=== PATIENT | male | born 1965 | race Caucasian/White ===

== ENCOUNTER 2017-04-24 05:32 | Inpatient (IN) ==
[2017-04-17 11:58] LABS: PT Patient Result 10.6 SECS
[2017-04-17 12:09] LABS: Albumin 4.2 G/DL (3.4-5.0); Bilirubin,Total 0.5 MG/DL (0.2-1.0); Calcium 9.2 MG/DL (8.5-10.1); Osmolality,Calculated 269.4 MOS/KG (273-304); Potassium 2.7 MMOL/L (3.5-5.1); Total Protein 7.2 G/DL (6.4-8.3)
[2017-04-17 12:14] LABS: Basophils % 0.3 % (0.0-0.8); Eosinophils % 0.2 % (0.00-10.9); Hematocrit 41.5 VOL% (42.0-52.0); Immature Granulocytes % 0.5 %; Immature Granulocytes Absolute 0.06 #; Lymphocytes # 1.7 10*3/uL (1.4-4.0); Lymphocytes % 13.9 % (21.2-54.2); Mean Corpuscular HGB Conc 37.8 GM/DL (32-36); Mean Corpuscular Hemoglobin 31 PG (27-34); Mean Corpuscular Volume 81.4 FL (87-102); Monocytes # 0.8 10*3/uL (0.11-0.8); Monocytes % 6.3 % (1.7-12.7); Neutrophils # 9.3 10*3/uL (1.4-7.4); Neutrophils % 78.8 % (38.7-73.9); Platelet Count 270 T/CUMM (130-400); Red Cell Distribution Width 13.1 % (9.3-17.3); White Blood Count 11.8 T/CUMM (4-12)
[2017-04-17 12:16] LABS: Hemoglobin 15.7 GM/DL (14.0-18.0)
[2017-04-17 12:42] LABS: Giant Platelets Few; Platelet Estimate Adequate
[2017-04-24] MEDS ORDERED: ceFAZolin 2,000 MG in PREMIX 1 EACH IV ONE (06:00)
--- NOTE | 2017-04-24 07:02 | History and Physical Update ---
History and Physical Update - History and Physical H&P was reviewed, the patient examined and there: are no changes in the patients condition since last H&P was completed. - Dictation Physical: refer to scanned H&P - Physical Exam Mental Status: alert and oriented Heart: regular rate and rhythm Lung: clear to auscultation Abdomen: within normal limits Vitals: within normal limits (Risks, benefits and alternatives discussed. Right Nephrectomy discussed- CHRISTIAN with possible Open discussed.)
[2017-04-24] MEDS ORDERED: ALBUTEROL 2.5 MG/3 ML NEB RESP TX ONE (07:58)
[2017-04-24] MEDS ORDERED: SODIUM CHLORIDE 0.9% 1,000 ML IV SCH (08:00)
[2017-04-24] MEDS ORDERED: DIAZEPAM 5 MG TABLET PO ONE (08:02)
[2017-04-24 10:15] LABS: Basophils % 0.2 % (0.0-0.8); Eosinophils % 0.3 % (0.00-10.9); Immature Granulocytes % 0.4 %; Immature Granulocytes Absolute 0.04 #; Lymphocytes # 1.9 10*3/uL (1.4-4.0); Lymphocytes % 20.3 % (21.2-54.2); Mean Corpuscular HGB Conc 37.5 GM/DL (32-36); Mean Corpuscular Hemoglobin 31 PG (27-34); Mean Corpuscular Volume 82.5 FL (87-102); Mean Platelet Volume 8.5 FL (9.6-12.0); Monocytes # 0.7 10*3/uL (0.11-0.8); Monocytes % 7.3 % (1.7-12.7); Neutrophils # 6.5 10*3/uL (1.4-7.4); Neutrophils % 71.5 % (38.7-73.9); Platelet Count 256 T/CUMM (130-400); Red Blood Count 4.85 MC/CUMM (3.8-5.5); Red Cell Distribution Width 13.1 % (9.3-17.3); White Blood Count 9.2 T/CUMM (4-12)
[2017-04-24] MEDS ORDERED: LIDOCAINE 2% 5 ML VIAL ONE (11:30)
[2017-04-24] MEDS ORDERED: GLYCOPYRROLATE 0.4 MG/2 ML VIAL ONE (11:30)
[2017-04-24] MEDS ORDERED: PHENYLEPHRINE 1 MG/10 ML SYRINGE IV ONE (11:30)
[2017-04-24] MEDS ORDERED: NEOSTIGMINE 10 MG/10 ML VIAL ONE (11:30)
[2017-04-24] MEDS ORDERED: PHENYLEPHRINE 50 MG/5 ML VIAL ONE (11:30)
[2017-04-24] MEDS ORDERED: ROCURONIUM 100 MG/10 ML VIAL IV ONE (11:30)
[2017-04-24] MEDS ORDERED: PROPOFOL 200 MG/20 ML VIAL IV ONE (11:30)
[2017-04-24] MEDS ORDERED: POTASSIUM CHLORIDE 20 MEQ/10 ML VIAL ONE (13:15)
[2017-04-24] MEDS ORDERED: POTASSIUM CHLORIDE RIDER 100 ML IV ONE (13:16)
--- NOTE | 2017-04-24 15:53 | Operative Note ---
Date of procedure: 04/24/17 Pre-op diagnosis: Right renal mass Post-op diagnosis: same Procedure: Hand-assisted laparoscopic right radical nephrectomy, adrenal sparing Indication for procedure: This is a 51-year-old male with history of enhancing right renal mass that is almost totally endophytic and right up to the collecting system. Upon imaging it is over 4 cm. He was given options for management, and he is elected for radical nephrectomy. We have discussed a partial nephrectomy or biopsy. He is not willing to take the risk of a possible leak or delayed bleed. He understands there is a risk with biopsy of 10% chance of missed carcinoma. After discussion, he elected to undergo radical nephrectomy. He understands this increases risk long-term of renal disease. He is hypertensive, not been somewhat reluctant about this. Have discussed this with several urologist, and reviewed the imaging with outside urologist. He understands there is a 1520% chance of this being an benign lesion, but he elects for intervention. Procedure detail: After informed consent, the patient brought to the operating room. He was placed supine on operating table. Proper monitoring devices and SCDs are in place and functioning prior to start of the case. He received 2 g of Ancef preoperatively. He was induced with general anesthetic without incident. Lines were started by anesthesia that they were felt were adequate. He did receive potassium as his potassium is chronically low. He was then moved into the left lateral decubitus position with the right side up. He was placed over the break in the bed and had a flex to the bed. His extremities were padded carefully. He had axillary roll placed. He had his arm secured appropriately to remove any tension and possible axillary and brachial plexus. At this point, his abdomen was clipped and then prepped and draped in standard fashion. After operative timeout, initially a paramedian incision at the umbilicus was made. This was carried down to the fascia. His fascia was opened sharply. There is no significant adhesions likely. At this point a GelPort hand port was placed. Pneumoperitoneum was established up to 15 mmHg. And then a camera port was placed under vision through the GelPort. A second port was placed on lateral to the hand port. Finally a third port was placed superiorly. These were all placed under direct visualization care not to injury any bowel or other organs. Laparoscopy was performed demonstrating no significant bowel or bladder bladder injury. No injury to the organs likely. There was some adhesions to the right lower quadrant and these were taken down sharply. This point a left hand was placed and the bowel was reflected. The white line of Toldt was incised and the bowel was reflected medially. The kidney was released laterally. This point the lower pole of the kidney was freed. The ureter and gonadal vein were identified. The ureter ureter was traced up. The medial portion of uritis was incised. The duodenum was released sharply. No evidence of injury was noted to this. The IVC was identified followed up, and the right renal vein was identified. At this point a lower pole artery was identified. This was taken with Endo RYANNE with a vascular load. At this point the second renal artery just superior and posterior to the renal vein was identified. This had been seen on previous CT scan. This was taken with an Endo RYANNE load. Finally the vein was taken separately with the Endo RYANNE. The kidney was then freed from the lateral attachments as well as the inferior attachments. Finally the superior attachments were freed. Was small area of bleeding from the right adrenal vein in this area was clipped. The adrenal gland was spared. Kidney was freed in its entirety. He was placed an Endo Close bag and removed through the GelPort. Pneumoperitoneum was decreased to 5 mmHg. We performed extensive inspection of the renal hilum the resection bed and the adrenal gland. No evidence of significant bleeding or oozing. At this point we placed FloSeal to the adrenal and the hilar area. The Gelfoam was placed over the hilum. Endo Close with 1- 0 Vicryl was used to close the 12 mm ports. This was done under direct visualization with no evidence of injury. Finally pneumoperitoneum was released completely. We had been on 5 mmHg for extended period with no evidence of wheezing. The port was removed and the fascia was closed in a running fashion with 1-0 Vicryl. There is good approximation. The wounds were irrigated copiously and skin was closed with melonie. Patient tolerated procedure well and was awakened general anesthetic. Transferred to recovery room in stable condition. Dr. Yan Niño was scrubbed and assisted with this nephrectomy for the critical portions of the case. Anesthesia: GETA Surgeon / Physician: Adilson Hall Fishing Lure Assembler: Yan Niño Estimated blood loss: other (75 cc) IV fluids: 3,200 (Crystalloid) Urine output: 300 Specimens: other (Right kidney was uritis) Condition: stable Disposition: PACU (Transfer to the floor when stable) Results - Labs CBC & BMP: 04/24/17 09:48 04/24/17 06:21 Lab Results: I have reviewed the past 24 hour labs Discharge Plan - Discharge Medications No Action traZODone [Desyrel] 300 mg PO BEDTIME Topiramate 3 tablet PO BID Lisinopril 20 mg PO DAILY Haloperidol 5 mg PO BID Pantoprazole Tab [Protonix Tab] 1 capsule PO DAILY Clorazepate [Tranxene] 7.5 mg PO TID buPROPion HCl [Bupropion HCl] 100 mg PO BID Tamsulosin [Flomax] 0.4 mg PO DAILY hydrOXYzine HCl [Hydroxyzine HCl] 25 mg PO DAILY Potassium 198 mg PO BID OXcarbazepine [Trileptal] 150 mg PO DAILY amLODIPine [Norvasc] 10 mg PO DAILY - Follow Up or Referral - Forms/Instructions
[2017-04-24] MEDS ORDERED: HYDROmorphone PCA 30 MG/30 ML SYRINGE IV ONE (16:11)
[2017-04-24] MEDS ORDERED: diphenhydrAMINE 50 MG/1 ML VIAL IV PRN (16:11)
[2017-04-24] MEDS ORDERED: NALOXONE 0.4 MG/ML VIAL IV PRN (16:11)
[2017-04-24] MEDS ORDERED: LABETALOL 20 MG/4 ML SYRINGE IV PRN (16:11)
[2017-04-24] MEDS ORDERED: FAMOTIDINE INJ 40 MG in SODIUM CHLORIDE 0.9% 100 ML IV SCH (16:11)
[2017-04-24] MEDS ORDERED: PROMETHAZINE INJ 12.5 MG in SODIUM CHLORIDE 0.9% 50 ML IV ONE (16:20)
[2017-04-24] MEDS ORDERED: PROMETHAZINE 25 MG/1 ML VIAL ONE (16:21)
[2017-04-24] MEDS ORDERED: HYDROmorphone 2 MG/1 ML VIAL ONE (16:21)
[2017-04-24] MEDS: HYDROmorphone 2 MG/1 ML VIAL IV PRN ×4 (16:23→16:38)
[2017-04-24] MEDS ORDERED: fentaNYL 100 MCG/2 ML VIAL ONE (16:26)
[2017-04-24] MEDS ORDERED: SEVOFLURANE 1 UNIT/15 MINUTE INH ONE (16:26)
[2017-04-24] MEDS ORDERED: MIDAZOLAM 2 MG/2 ML VIAL ONE (16:26)
[2017-04-24] MEDS ORDERED: ePHEDrine 50 MG/ML AMP ONE (16:27)
[2017-04-24] MEDS ORDERED: ACETAMINOPHEN 1,000 MG/100 ML VIAL IV ONE (16:27)
[2017-04-24] MEDS ORDERED: SODIUM CHLORIDE 0.9% 1,000 ML IV ONE (16:27)
[2017-04-24] MEDS ORDERED: LACTATED RINGERS 2,000 ML IV ONE (16:27)
[2017-04-24] MEDS ORDERED: SODIUM CHLORIDE 0.9% 250 ML IV ONE (16:27)
[2017-04-24] MEDS ORDERED: MORPHINE 2 MG/1 ML SYRINGE IV ONE (16:34)
[2017-04-24] MEDS ORDERED: MORPHINE 10 MG/1 ML VIAL ONE (16:36)
[2017-04-24] MEDS: HYDROmorphone PCA 30 MG/30 ML SYRINGE IV SCH (16:52)
[2017-04-24 17:10] LABS: Hematocrit 39.9 VOL% (42.0-52.0); Hemoglobin 14.4 GM/DL (14.0-18.0)
[2017-04-24] MEDS: SODIUM CHLORIDE 0.9% 1,000 ML IV SCH (17:53)
[2017-04-24] MEDS: ACETAMINOPHEN 500 MG TABLET PO SCH ×2 (17:54→21:42)
[2017-04-24] MEDS: FAMOTIDINE INJ 40 MG in SODIUM CHLORIDE 0.9% 100 ML IV SCH (19:25)
[2017-04-24] MEDS: CLORAZEPATE 3.75 MG TABLET PO SCH (21:42)
[2017-04-24] MEDS: TOPIRAMATE 25 MG TABLET PO SCH (21:43)
[2017-04-24] MEDS: buPROPion 100 MG TABLET PO SCH (21:43)
[2017-04-24] MEDS: HALOPERIDOL 5 MG TABLET PO SCH (21:43)
--- NOTE | 2017-04-24 22:53 | Anesthesia Post-Op ---
Anesthesia Post OP - Post Ansesthetic Evaluation Patient seen in post op: Yes Resp: within normal limits CV: within normal limits Mental: within normal limits Temp: within normal limits Wqct-By-[id number]: within normal limits Nausea and Vomiting: within normal limits Pain: within normal limits
[2017-04-25] MEDS: ACETAMINOPHEN 500 MG TABLET PO SCH (03:17)
[2017-04-25] MEDS: SODIUM CHLORIDE 0.9% 1,000 ML IV SCH (03:18)
[2017-04-25 05:45] LABS: Basophils # 0.1 10*3/uL (0.0-0.2); Basophils % 0.3 % (0.0-0.8); Eosinophils % 0.1 % (0.00-10.9); Hematocrit 32.5 VOL% (42.0-52.0); Hemoglobin 11.7 GM/DL (14.0-18.0); Immature Granulocytes % 0.5 %; Immature Granulocytes Absolute 0.09 #; Lymphocytes # 1.3 10*3/uL (1.4-4.0); Lymphocytes % 6.3 % (21.2-54.2); Mean Corpuscular Hemoglobin 31 PG (27-34); Mean Corpuscular Volume 84.9 FL (87-102); Mean Platelet Volume 8.8 FL (9.6-12.0); Monocytes # 1.2 10*3/uL (0.11-0.8); Monocytes % 6.1 % (1.7-12.7); Neutrophils # 17.2 10*3/uL (1.4-7.4); Neutrophils % 86.7 % (38.7-73.9); Platelet Count 281 T/CUMM (130-400); Red Blood Count 3.83 MC/CUMM (3.8-5.5); Red Cell Distribution Width 13.3 % (9.3-17.3); White Blood Count 19.9 T/CUMM (4-12)
[2017-04-25 06:10] LABS: Calcium 7.8 MG/DL (8.5-10.1); Hypochromasia Slight; Osmolality,Calculated 269.2 MOS/KG (273-304); Potassium 3.4 MMOL/L (3.5-5.1)
[2017-04-25 06:11] LABS: Microcytosis 1+; Platelet Estimate Normal
--- NOTE | 2017-04-25 07:23 | Urology Progress Note ---
Assessment and Plan - Time spent with patient Time spent with patient: Less than 30 minutes (1) Right renal mass Status: Acute Assessment and plan: Postop day 1 status post right hand-assisted laparoscopic nephrectomy. Incentive spirometer, increase use of this. Out of bed to chair and ambulate in the hallway today. Continue OPERATIONS LEAD for pain control. Continue clear liquid diet as I am concerned he is drinking a lot of fluids may develop an ileus. We will obtain a chest x-ray. Current Visit: Yes (2) Hypertension Status: Acute Assessment and plan: Restart home amlodipine.. Labetalol as needed. Current Visit: Yes (3) Acute blood loss as cause of postoperative anemia Status: Acute Assessment and plan: Recheck a CBC at noon. At less than 100 cc blood loss and his hematocrit was stable medially postop. Current Visit: Yes (4) Bipolar disorder Status: Acute Assessment and plan: Restart home psychiatric medication. Current Visit: No Qualifiers: Active/Remission status: remission status unspecified Qualified Code(s): F31.9 - Bipolar disorder, unspecified (5) Diabetes mellitus Status: Acute Assessment and plan: Start sliding scale insulin with fingersticks before meals and at bedtime. He was on medication, but this was stopped after he lost 60 pounds. If his glucose remains stable we will stop the sliding scale and fingersticks. Current Visit: No Qualifiers: Diabetes mellitus type: type 2 (6) Hypokalemia Status: Acute Assessment and plan: He has chronic hypokalemia, but will add potassium with his IV fluids. Recheck a BMP in the morning Current Visit: Yes Urology - PN: Subj Interval history: Nurse reports no acute events overnight. Patient reports she has had some significant pain and difficulty getting into big breath. Feels a burning sensation to his abdomen. He has been drinking a lot of water. He had a his history of psychogenic polydipsia. I have warned him to lay off this as he is immediate postop and may develop ileus. He has been up to the side of the bed several times. He reports he does have a lot of burping but no flatus. No nausea vomiting. Exam - Constitutional Vitals: Period Temp Pulse Resp BP Sys/Palma Pulse Ox Last 24 Hr 97.7 F-98.7 F 88-116 16-24 110-154/66-100 92-99 General appearance: no acute distress - Head Head exam: Present: normocephalic, atraumatic - Eye Eye exam: Absent: scleral icterus - ENT ENT exam: Present: normal oropharynx - Neck Neck exam: Present: normal inspection - Respiratory Respiratory exam: Present: decreased breath sounds (Bilateral basis). Absent: accessory muscle use, stridor, wheezes - Cardiovascular Cardiovascular exam: Present: tachycardia (In the 1 teens). Absent: JVD - GI/Abdominal GI/Abdominal exam: Present: hypoactive bowel sounds, tenderness (Appropriately tender), soft. Absent: rebound - Genitourinary Genitourinary: scrotum without lesions, cysts, edema or rash, penis with no lesions or discharge, other (Renst draining clear urine) - Extremities Exam Extremities exam: Present: normal capillary refill - Back Exam Back exam: Absent: CVA tenderness (L), CVA tenderness (R) - Neurological Exam Neurological exam: Present: alert, oriented X3 - Psychiatric Psychiatric exam: Present: normal affect, normal mood - Skin Skin exam: Present: warm, dry Results - Labs CBC & BMP: 04/25/17 05:24 04/25/17 05:24 Lab Results: I have reviewed the past 24 hour labs
[2017-04-25] MEDS: CLORAZEPATE 3.75 MG TABLET PO SCH ×3 (08:59→20:58)
[2017-04-25] MEDS: TOPIRAMATE 25 MG TABLET PO SCH ×2 (08:59→20:59)
[2017-04-25] MEDS: OXcarbazepine 300 MG TABLET PO SCH (09:00)
[2017-04-25] MEDS: hydrOXYzine HCL 25 MG TABLET PO SCH (09:00)
[2017-04-25] MEDS: buPROPion 100 MG TABLET PO SCH ×2 (09:02→20:58)
[2017-04-25] MEDS: HALOPERIDOL 5 MG TABLET PO SCH ×2 (09:02→20:58)
[2017-04-25] MEDS: SODIUM CHLOR 0.9% KCL 20 MEQ 20 MEQ/1,000 ML BAG IV SCH ×2 (09:07→16:20)
[2017-04-25] MEDS: LISINOPRIL 20 MG TABLET PO SCH (10:51)
[2017-04-25] MEDS: amLODIPine 10 MG TABLET PO SCH (10:52)
[2017-04-25] MEDS: PANTOPRAZOLE 40 MG TABLET PO SCH (10:52)
[2017-04-25 11:59] LABS: Basophils # 0.1 10*3/uL (0.0-0.2); Basophils % 0.3 % (0.0-0.8); Eosinophils % 0.1 % (0.00-10.9); Hematocrit 28.8 VOL% (42.0-52.0); Hemoglobin 10.8 GM/DL (14.0-18.0); Immature Granulocytes % 0.3 %; Immature Granulocytes Absolute 0.06 #; Lymphocytes # 1.2 10*3/uL (1.4-4.0); Lymphocytes % 6.7 % (21.2-54.2); Mean Corpuscular HGB Conc 37.5 GM/DL (32-36); Mean Corpuscular Hemoglobin 32 PG (27-34); Mean Corpuscular Volume 84.2 FL (87-102); Mean Platelet Volume 8.9 FL (9.6-12.0); Monocytes # 0.9 10*3/uL (0.11-0.8); Monocytes % 5.2 % (1.7-12.7); Neutrophils # 15.4 10*3/uL (1.4-7.4); Neutrophils % 87.4 % (38.7-73.9); Platelet Count 234 T/CUMM (130-400); Red Blood Count 3.42 MC/CUMM (3.8-5.5); Red Cell Distribution Width 13.4 % (9.3-17.3); White Blood Count 17.6 T/CUMM (4-12)
[2017-04-25] MEDS: INSULIN REGULAR 100 UNIT/ML SUBCUT SCH ×3 (12:54→20:59)
--- NOTE | 2017-04-25 13:12 | Event Note ---
Patient reports she has been up and ambulated. He still has some feeling that he can get a good breath. His chest x-ray demonstrated air in the diaphragm as expected. He feels better. His vital signs have been stable. He is slightly tachycardic. His urine output has been good he has had over 700 cc of clear urine in Ernst bag this morning. Reviewed his repeat CBC. His hematocrit did slightly trend down. We will repeat CBC in the morning. I have discussed with he and his family that his hemoglobin is trending down more than I expected. We had less than 100 cc of blood loss Intra-Op. Will monitor closely.
--- NOTE | 2017-04-25 14:17 | XRay Report ---
Portable chest Exam date: 04/25/2017 834 AM Indication: Shortness of breath, cough status post laparoscopic nephrectomy Comparison: March 29, 2017 Findings: Cardiomediastinal contours are stable. Low lung volumes with central interstitial prominence, exaggerated by poor inspiration. No acute osseous abnormalities. Visualized upper abdomen demonstrates pneumoperitoneum. Impression: 1. Prominence of central pulmonary vasculature, exaggerated by low lung volumes. Could not exclude interstitial edema 2. Pneumoperitoneum, expected postoperatively PROCEDURE INTERPRETED AT [facility] DEPARTMENT OF RADIOLOGY Final Report Signed by: Rula Bell MD
[2017-04-25] MEDS: FAMOTIDINE INJ 40 MG in SODIUM CHLORIDE 0.9% 100 ML IV SCH (20:58)
[2017-04-26] MEDS: SODIUM CHLOR 0.9% KCL 20 MEQ 20 MEQ/1,000 ML BAG IV SCH ×5 (00:54→17:48)
[2017-04-26 06:26] LABS: Basophils % 0.3 % (0.0-0.8); Eosinophils # 0.1 10*3/uL (0.0-0.87); Eosinophils % 0.7 % (0.00-10.9); Hematocrit 24.8 VOL% (42.0-52.0); Hemoglobin 8.9 GM/DL (14.0-18.0); Immature Granulocytes % 0.7 %; Lymphocytes # 1.1 10*3/uL (1.4-4.0); Mean Corpuscular HGB Conc 35.9 GM/DL (32-36); Mean Corpuscular Hemoglobin 31 PG (27-34); Mean Corpuscular Volume 85.5 FL (87-102); Mean Platelet Volume 9.3 FL (9.6-12.0); Monocytes # 1.2 10*3/uL (0.11-0.8); Monocytes % 7.7 % (1.7-12.7); Neutrophils # 12.6 10*3/uL (1.4-7.4); Neutrophils % 83.6 % (38.7-73.9); Platelet Count 206 T/CUMM (130-400); Red Cell Distribution Width 13.2 % (9.3-17.3); White Blood Count 15.1 T/CUMM (4-12)
[2017-04-26] MEDS ORDERED: SODIUM CHLORIDE 0.9% 250 ML IV PRN (06:40)
[2017-04-26 06:55] LABS: Magnesium 1.7 MG/DL (1.8-2.4); Osmolality,Calculated 264.5 MOS/KG (273-304); Potassium 3.2 MMOL/L (3.5-5.1)
[2017-04-26] MEDS ORDERED: BISACODYL 10 MG SUPP RECTAL ONE (06:57)
[2017-04-26] MEDS: ALBUTEROL/IPRATROPIUM 3 ML NEB RESP TX SCH ×3 (07:10→19:22)
[2017-04-26] MEDS: INSULIN REGULAR 100 UNIT/ML SUBCUT SCH ×4 (07:57→23:07)
[2017-04-26] MEDS: hydrOXYzine HCL 25 MG TABLET PO SCH (09:33)
[2017-04-26] MEDS: buPROPion 100 MG TABLET PO SCH ×2 (09:33→21:29)
[2017-04-26] MEDS: amLODIPine 10 MG TABLET PO SCH (09:33)
[2017-04-26] MEDS: HALOPERIDOL 5 MG TABLET PO SCH ×2 (09:34→21:29)
[2017-04-26] MEDS: LISINOPRIL 20 MG TABLET PO SCH (09:34)
[2017-04-26] MEDS: PANTOPRAZOLE 40 MG TABLET PO SCH (09:34)
[2017-04-26] MEDS: CLORAZEPATE 3.75 MG TABLET PO SCH ×3 (09:34→21:29)
[2017-04-26] MEDS: TOPIRAMATE 25 MG TABLET PO SCH ×2 (09:34→21:29)
[2017-04-26] MEDS: OXcarbazepine 300 MG TABLET PO SCH (09:35)
[2017-04-26] MEDS: PROMETHAZINE 25 MG/1 ML VIAL IM PRN ×2 (09:35→18:09)
--- NOTE | 2017-04-26 11:08 | Physician Query Form ---
CLICK EDIT DOCUMENT TO SELECT QUERY ANSWER --> OK --> SIGN Alina Griffin RN Clinical [employer] Crew Member W) [phone] (f) [phone] [email or web address]: Make your selection(s) from the choices in EACH section by typing an "x" and enter comments in the comment section. Please use your independent medical judgment in providing your response. This request does not imply that any particular answer is desired or expected. CLINICAL INDICATORS: (Providers should not edit this section) Based on lab results of creatinine of 1.40 with a GFR of 71 and decreased to 1.10. Pt. treated with IV fluids. Clarify which of the following most accurately represents the patient's renal status: ( ) Acute kidney injury (non-traumatic) ( ) Acute renal failure ( ) Acute renal failure with underlying Chronic Kidney Disease (CKD) - please provide stage below ( ) CKD - please provide stage below ( ) Other, please specify: ( ) Clinically unable to determine Chronic Kidney Disease Stages Source: National Kidney Disease Foundation ( ) Stage I (eGFR > or = 90) ( ) Stage II (eGFR 60 - 89) ( ) Stage III (eGFR 30 - 59) ( ) Stage IV (eGFR 15 - 29) ( ) Stage V (eGFR < 15 or dialysis) COMMENTS: PLEASE ALSO DOCUMENT RESPONSE IN PROGRESS NOTES AND/OR DISCHARGE SUMMARY Use of terms such as suspected, likely, or probable (associated with a specific diagnosis that is being evaluated, monitored, or treated as if it exists) are acceptable and can be restated in the discharge summary if not ruled out. MTDD
[2017-04-26 12:11] LABS: Basophils % 0.2 % (0.0-0.8); Eosinophils % 0.3 % (0.00-10.9); Hematocrit 24.8 VOL% (42.0-52.0); Hemoglobin 9.3 GM/DL (14.0-18.0); Immature Granulocytes % 0.8 %; Immature Granulocytes Absolute 0.12 #; Lymphocytes # 0.9 10*3/uL (1.4-4.0); Lymphocytes % 6.3 % (21.2-54.2); Mean Corpuscular HGB Conc 37.5 GM/DL (32-36); Mean Corpuscular Hemoglobin 32 PG (27-34); Mean Corpuscular Volume 84.4 FL (87-102); Monocytes # 0.9 10*3/uL (0.11-0.8); Monocytes % 6.2 % (1.7-12.7); Neutrophils # 12.6 10*3/uL (1.4-7.4); Neutrophils % 86.2 % (38.7-73.9); Platelet Count 209 T/CUMM (130-400); Red Blood Count 2.94 MC/CUMM (3.8-5.5); Red Cell Distribution Width 13.1 % (9.3-17.3); White Blood Count 14.6 T/CUMM (4-12)
[2017-04-26] MEDS ORDERED: diphenhydrAMINE 50 MG/1 ML VIAL IV ONE (12:13)
[2017-04-26] MEDS ORDERED: ACETAMINOPHEN 325 MG TABLET PO ONE (12:14)
--- NOTE | 2017-04-26 12:22 | Urology Progress Note ---
Assessment and Plan - Time spent with patient Time spent with patient: Less than 30 minutes (1) Right renal mass Status: Acute Assessment and plan: Postop day 2 status post right hand-assisted laparoscopic nephrectomy. Incentive spirometer, increase use of this. Out of bed to chair and ambulate in the hallway today. Continue DESPATCHING AND RECEIVING CLERK for pain control. Continue clear liquid diet. Current Visit: Yes (2) Hypertension Status: Acute Assessment and plan: Restart home amlodipine. Labetalol as needed. Current Visit: Yes (3) Acute blood loss as cause of postoperative anemia Status: Acute Assessment and plan: Anemia decrease more than expected. I am concerned that he has a small venous bleed. His repeat CBC from 4 AM to 8 AM had stabilized. I had ordered 2 units packed red blood cells, but he had a reaction with the first unit. We will try premedication with Benadryl and Tylenol. And then transfuse 1 unit. I am going to move him to the ICU for closer monitoring. Current Visit: Yes (4) Bipolar disorder Status: Acute Assessment and plan: Restarted home psychiatric medication. Current Visit: No Qualifiers: Active/Remission status: remission status unspecified Qualified Code(s): F31.9 - Bipolar disorder, unspecified (5) Diabetes mellitus Status: Acute Assessment and plan: Start sliding scale insulin with fingersticks before meals and at bedtime. He was on medication, but this was stopped after he lost 60 pounds. If his glucose remains stable we will stop the sliding scale and fingersticks. Current Visit: No Qualifiers: Diabetes mellitus type: type 2 (6) Hypokalemia Status: Acute Assessment and plan: He has chronic hypokalemia, but will add potassium with his IV fluids. Recheck a BMP in the morning. Current Visit: Yes (7) Acute kidney injury Status: Acute Assessment and plan: Creatinine elevated to 1.40, then has followed back to 1.10. Expected rise after radical nephrectomy and blood loss. He is making good urine, hemodynamically his blood pressure is good. He is tachycardic, and has continued on IV fluids. This may be contributing to some of his anemia as it is likely causing more dilution. Maintain Ernst catheter for strict I's and O's. Current Visit: Yes (8) Productive cough Status: Acute Assessment and plan: Will start duo nebs every 6 hours. We will consult hospitalist service for assistance with medical management in the ICU. He does have a leukocytosis, but this is trending down. It is not uncommon to have a leukocytosis after surgery, but with his productive sputum I do not want to miss a pneumonia. I have had a discussion with he and his . I am concerned that he is bleeding more than usual, and would like him in a closer monitor setting. Aggressive pulmonary toileting and strict I's and O's. Current Visit: Yes Urology - PN: Subj Interval history: Patient reports she is having a productive cough with thick discolored sputum. The nurse reports he had some episodes with saturations in the upper 80s while sleeping. He was started on O2 2 L this improved into the low 90s. Has been using incentive spirometer. He reports that he had one episode of flatus. No bowel movement. He has tolerated oral intake of clear liquids. He denies any fevers or chills this morning. I saw him this morning, and in order 2 units of blood to be transfused. He developed a temp of 101.4 within the first 15 minutes of transfusion. This was stopped. His temp is now normalized. He denies any increased shortness of breath. His O2 saturations are 96-97% on room air currently. Exam - Constitutional Vitals: Period Temp Pulse Resp BP Sys/Palma Pulse Ox Last 24 Hr 98.1 F-99.7 F 115-126 18-22 116-161/63-96 86-96 General appearance: no acute distress - Head Head exam: Present: normocephalic, atraumatic - Eye Eye exam: Absent: scleral icterus - ENT ENT exam: Present: normal oropharynx - Respiratory Respiratory exam: Present: decreased breath sounds (Right base), rhonchi - Cardiovascular Cardiovascular exam: Present: tachycardia. Absent: JVD - GI/Abdominal GI/Abdominal exam: Present: distended, tenderness (Appropriately tender), soft, other (Incision sites well approximated with melonie, no drainage). Absent: rebound - Genitourinary Genitourinary: penis with no lesions or discharge, other (Ernst catheter draining clear urine) - Extremities Exam Extremities exam: Present: normal capillary refill. Absent: edema - Back Exam Back exam: Absent: CVA tenderness (L), CVA tenderness (R) - Neurological Exam Neurological exam: Present: alert, oriented X3 - Psychiatric Psychiatric exam: Present: normal affect, normal mood - Skin Skin exam: Present: warm, dry Results - Labs CBC & BMP: 04/26/17 11:43 04/26/17 04:38 Lab Results: I have reviewed the past 24 hour labs
[2017-04-26 12:35] LABS: Hematocrit 25.8 VOL% (42.0-52.0); Hemoglobin 9.5 GM/DL (14.0-18.0)
[2017-04-26] MEDS ORDERED: MAGNESIUM SULF RIDER 50 ML IV ONE (12:52)
[2017-04-26] MEDS ORDERED: MAGNESIUM SULF RIDER 2 GM in PREMIX 1 EACH IV PRN (13:02)
[2017-04-26] MEDS ORDERED: MAGNESIUM SULF RIDER 4 GM in PREMIX 1 EACH IV PRN (13:02)
[2017-04-26] MEDS ORDERED: HYDROmorphone 2 MG/1 ML VIAL IV PRN (13:02)
[2017-04-26] MEDS ORDERED: POTASSIUM CHLORIDE 20 MEQ TABLET PO ONE (13:03)
--- NOTE | 2017-04-26 13:10 | Order Completion Report ---
See report scanned to EMR
--- NOTE | 2017-04-26 13:10 | Event Note ---
Repeat H&H actually is improved. He does have a history of psychogenic polydipsia, and his reports is been drinking a lot of fluids. This may have contributed some to dilution. Furthermore, he is now postop day 2 and has been on IV fluids. Will decrease his IV fluids to 75 mL/h. Hospital service has been consulted, and they will assist with replacement of his electrolytes. He does have hypokalemia which is chronic. He does have hypomagnesemia postop, and this will be replaced per protocol. As he had a fever with blood transfusion, and his hemoglobin has stabilized, I am going to hold the blood transfusion for now. We will check H&H every 4 hours. Appreciate hospitalist evaluation and assistance.
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
--- NOTE | 2017-04-26 15:14 | Hospitalist Consult Note ---
Assessment and Plan - Time spent with patient Time spent with patient: Greater than 30 minutes (1) Right renal mass Status: Acute Assessment and plan: 04/25/17 S/P right radical Nephrectomy r/t right renal mass Patient - patient has a history psychogenic polydipsia. hypokalemia: HX of CHRONIC HyPOkalemia: Potassium replacement initiated (p.o. dose 40 meq x 1 and NS with potassium at 50cc/hr) hyponatremia: restrict free fluid intake hypomagnesium: magnesium replacement per protocol initiated repeat a.m. labs Will need to review home medications and discuss with Dr Field for further recommendations for care. Current Visit: Yes (2) Hyponatremia Status: Acute Current Visit: Yes (3) Hypomagnesemia Status: Acute Current Visit: Yes (4) Acute blood loss as cause of postoperative anemia Status: Acute Assessment and plan: 04/26/17 Noted patient received 1 unit PRBCs 2nd unit is on hold r/t patient developed a fever after 1st unit H&H is stable 9.5 and 25.8 will repeat labs in a.m. Current Visit: Yes (5) Hypokalemia Status: Acute Current Visit: Yes (6) Bipolar disorder Status: Acute Assessment and plan: 04/26/17 will continue home medications Current Visit: No Qualifiers: Active/Remission status: remission status unspecified Qualified Code(s): F31.9 - Bipolar disorder, unspecified (7) Tourettes syndrome Status: Acute Current Visit: No History of Present Illness - Consult Narrative Reason for consult: hyponatremia, hypokalemia, hypomagnesium History of present illness: Mr. Liriano is a 51 year old white male w/PMHx Tourette's syndrome, bipolar disorder seen in CCU room 130 as a consult for Hospital Medicine for electrolyte imbalance and polydipsia s/p right radical nephrectomy 04/24/17 related to a right renal mass with associated gross hematuria. The renal mass was noted to be almost totally endophytic and up to the collecting system, over 4cm is size. 04/26/17 Labs hyponatremia 132, hypokalemia 3.2, hypomagnesium 1.7, and low osmolality 264.5, H&H improved after 1 unit PRBC up to 9.5 & 25.8. Patient reports increase in thirst. He reports pain is well controlled at present, he is using a dilaudid PASTORAL ASSISTANT pump for pain management. He denies shortness of breath , chest pain, nausea or vomiting. His incision x2 to right abdomen, has melonie intact and without any redness or drainage noted. CC: Adilson Hall MD - Home Medications and Allergies Home Medications: Home Medications Medication Instructions Recorded Confirmed Type Haloperidol 5 mg PO TID 01/31/15 04/24/17 History Lisinopril 20 mg PO DAILY 01/31/15 04/24/17 History Pantoprazole Tab [Protonix Tab] 1 capsule PO DAILY 01/31/15 04/24/17 History Topiramate 3 tablet PO BID 01/31/15 04/24/17 History traZODone [Desyrel] 300 mg PO BEDTIME 01/31/15 04/24/17 History Clorazepate [Tranxene] 7.5 mg PO TID 10/19/16 04/24/17 History OXcarbazepine [Trileptal] 150 mg PO DAILY 10/19/16 04/24/17 History amLODIPine [Norvasc] 10 mg PO DAILY 10/26/16 04/24/17 History Tamsulosin [Flomax] 0.4 mg PO DAILY 03/29/17 04/24/17 History buPROPion HCl [Bupropion HCl] 100 mg PO BID 03/29/17 04/24/17 History hydrOXYzine HCl [Hydroxyzine HCl] 25 mg PO DAILY 03/29/17 04/24/17 History Potassium 198 mg PO BID 04/24/17 04/24/17 History Allergies/Adverse Reactions: Allergies Allergy/AdvReac Type Severity Reaction Status Date / Time ondansetron AdvReac HIVES Verified 03/29/17 13:05 [From Zofran (as hydrochloride)] Medical,Surgical,& Family Hx - Medical History Cardio: History of: Hypertension Psychological: History of: Bipolar Disorder, Depression, Previous Suicide Attempt (1990, 2003; denies any problems now) Neurology: History of: Neurological Problems (Tourette Syndrome) No history of: Seizures Endocrine: History of: Diabetes Mellitus (NIDDM) (PT NOT ON MEDICATIONS OR INSULINS. RESOLVED WITH WEIGHT LOSS.) Respiratory: No history of: Respiratory Problems (FLU VAC- NO;PNEU VAC- YES.) Renal: History of: Renal Problems (BLOOD IN URINE.) Genitourinary: History of: Kidney Stones Gastrointestinal: History of: Diverticulitis/ Diverticulosis (PRE CANCER CELLS.) Musculoskeletal: History of: Back/Neck Problems (LOWER BACK PAIN. DR NUÑEZ BACK INJECTIONS 4-5 YEARS AGO.), Musculoskeletal Problems (right hip and sciatic nerve pain) Other: History of: MRSA (LT LEG?) - Surgical History Thoracic Surgeries: Surgical HX of;: Nephrectomy (right) Patient denies;: Organ Transplant Neurologic Surgeries: Patient denies: Neurologic Surgery HEENT Surgeries: Surgical HX of: Tonsilectomy & Adenoidectomy Abdominal Surgeries: Surgical HX of: Abdominal Surgery (colectomy- 10 inches of colon removed by Dr. Jason Bell at [place]), Appendectomy (1996 at [facility]), Cholecystectomy (2001 Dr. Jason Bell at [place]), Colonoscopy, Gastric Bypass Surgery Orthopedic Surgeries: Surgical HX of;: Orthopedic Surgery (RT KNEE SCOPE. BEN CARPAL TUNNEL) - Family History Family History: Reports;: Family Diabetes - Social History Smoking Status: Never smoker Frequency of Alcohol Use: None Type of Drug Use: None, Marijuana 12 point system: reviewed and no additional remarkable complaints except as stated - Constitutional Constitutional: Absent: chills, fever(s) - Cardiovascular Cardiovascular: Absent: chest pain at rest, chest pain with activity, dyspnea, dyspnea on exertion, edema - Gastrointestinal Gastrointestinal: Present: other (abdominal tenderness related to 2 incisions s/ p right radical nephrectomy) - Genitourinary Genitourinary: Present: other (jalloh intact; clear yellow urine) Exam - Constitutional Vitals: Period Temp Pulse Resp BP Sys/Palma Pulse Ox Last 24 Hr 98.1 F-101.4 F 115-126 18-22 116-161/63-96 86-96 General appearance: normal weight, no acute distress - Head Head exam: Present: normal inspection, normocephalic - Eye Eye exam: Present: EOMI Pupils: Present: SALTY - Neck Neck exam: Present: normal inspection. Absent: thyromegaly - Respiratory Respiratory exam: Present: clear to auscultation bilaterally. Absent: rales, rhonchi, stridor, wheezes - Cardiovascular Cardiovascular exam: Present: regular rate and rhythm - GI/Abdominal GI/Abdominal exam: Present: normal bowel sounds - Extremities Exam Extremities exam: Present: normal inspection, full ROM. Absent: edema - Neurological Exam Neurological exam: Present: alert, oriented X3, other (sleepy related to Dilaudid PASTORAL ASSISTANT - easily awakened and answers questions appropriately) - Psychiatric Psychiatric exam: Present: normal affect, normal mood. Absent: agitated, anxious - Skin Skin exam: Present: normal color, warm, dry Results - Labs CBC & BMP: 04/26/17 12:27 04/26/17 04:38 Lab Results: I have reviewed the past 24 hour labs - Diagnostic Findings Procedure: Chest x-ray: report reviewed by me (Atelectasis at the lung bases with no pneumothorax. Smaller pneumoperitoneum in postoperative patient) Quality Measures - VTE Contraindication to Pharmacological VTE Prophylaxis: High Risk of Bleeding
[2017-04-26] MEDS: HYDROmorphone PCA 30 MG/30 ML SYRINGE IV SCH ×2 (17:00→20:18)
[2017-04-26 17:41] LABS: Hematocrit 27.2 VOL% (42.0-52.0); Hemoglobin 9.9 GM/DL (14.0-18.0)
--- NOTE | 2017-04-26 18:17 | Pathology Report from [facility] ---
[facility] ACCESSION # : [id number] PATIENT NAME : Cesar Liriano ORDERING DR : SANDI ERICKSON CLINICAL HX: RT renal mass POST-OP DX: Same SPECIMEN INFO: RT kidney GROSS DESCRIPTION: Received in formalin labeled with the patients name CESAR LIRIANO and consists of a total nephrectomy (12.0 x 7.0 cm) with an attached segment of ureter (6.5 cm length). Bisecting the kidney reveals a single, well-circumscribed yellow-brown tumor (2.8 x 2.6 cm) located in the mid lower pole which grossly does not extend to the renal capsule and does not involve the renal pelvis. There is a layer of perirenal fat measuring up to 4.0 cm overlying the area of the tumor. The adrenal gland is not identified. Sections submitted: A ureteral and vascular margins, B thru D tumor, E international account representative normal kidney, F fatty margin overlying tumor. DIAGNOSIS FOR CESAR LIRIANO: RIGHT KIDNEY, RADICAL NEPHRECTOMY: TYPE: Clear cell renal cell carcinoma. SIZE: 2.8 x 2.6 cm. WHO/ISUP GRADE: G2. MARGINS: Uninvolved. SITE: Mid lower pole FOCALITY: Unifocal. ANATOMIC EXTENT: Tumor limited to kidney. SARCOMATOID FEATURES: Not identified. RHABDOID FEATURES: Not identified. TUMOR NECROSIS: Not identified. LYMPHOVASCULAR INVASION: Not identified. LYMPH NODES: Number examined: 0; Number involved: 0. FINDINGS IN KIDNEY: Chronic interstitial nephritis. AJCC (2018) PATHOLOGIC STAGE: Stage I ([id number]). COLLECTED DATE: 04/25/2017 [facility] REPORT DATE: 04/26/2017 ELECTRONICALLY SIGNED BY: Aisha Layton M.D. 04/26/2017 - 15:19:37 NICKY
--- NOTE | 2017-04-26 18:23 | Event Note ---
Hemoglobin is improving with diuresis. We will hold off every 4 H&H's as long as the patient continues to be in hemodynamically stable. Will recheck labs in the morning. Have discussed with his and family his current clinical status. They were upset that he was almost given Zofran, which he is allergic to. I have asked the nurses to place a allergy operations section manager his arm band. Phenergan IM has been ordered for nausea. His pathology return pT1a clear-cell renal cell carcinoma with negative margins. Pathology reviewed with family.
[2017-04-26] MEDS: FAMOTIDINE INJ 40 MG in SODIUM CHLORIDE 0.9% 100 ML IV SCH (21:28)
[2017-04-26] MEDS: DOCUSATE SODIUM 100 MG CAPSULE PO SCH (21:29)
[2017-04-27] MEDS: ALBUTEROL/IPRATROPIUM 3 ML NEB RESP TX SCH (01:07)
[2017-04-27 02:08] LABS: Calcium 8.3 MG/DL (8.5-10.1); Magnesium 2.1 MG/DL (1.8-2.4); Osmolality,Calculated 264.7 MOS/KG (273-304); Potassium 3.5 MMOL/L (3.5-5.1)
[2017-04-27 02:12] LABS: Basophils % 0.2 % (0.0-0.8); Eosinophils % 0.2 % (0.00-10.9); Hematocrit 28.4 VOL% (42.0-52.0); Hemoglobin 10.6 GM/DL (14.0-18.0); Immature Granulocytes % 0.7 %; Immature Granulocytes Absolute 0.12 #; Lymphocytes # 1.2 10*3/uL (1.4-4.0); Lymphocytes % 7.3 % (21.2-54.2); Mean Corpuscular HGB Conc 37.3 GM/DL (32-36); Mean Corpuscular Hemoglobin 32 PG (27-34); Mean Corpuscular Volume 84.8 FL (87-102); Mean Platelet Volume 9.2 FL (9.6-12.0); Monocytes # 1.1 10*3/uL (0.11-0.8); Monocytes % 6.3 % (1.7-12.7); Neutrophils # 14.4 10*3/uL (1.4-7.4); Neutrophils % 85.3 % (38.7-73.9); Platelet Count 241 T/CUMM (130-400); Red Blood Count 3.35 MC/CUMM (3.8-5.5); Red Cell Distribution Width 12.9 % (9.3-17.3); White Blood Count 16.9 T/CUMM (4-12)
[2017-04-27] MEDS ORDERED: LEVALBUTEROL 1.25 MG/3 ML NEB RESP TX ONE (02:12)
[2017-04-27] MEDS: SODIUM CHLOR 0.9% KCL 20 MEQ 20 MEQ/1,000 ML BAG IV SCH (02:13)
[2017-04-27] MEDS ORDERED: LEVALBUTEROL 1.25 MG/3 ML NEB RESP TX SCH (07:00)
[2017-04-27] MEDS: LEVALBUTEROL 1.25 MG/3 ML NEB RESP TX SCH ×3 (07:31→19:54)
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
[2017-04-27] MEDS: INSULIN REGULAR 100 UNIT/ML SUBCUT SCH ×4 (08:03→21:32)
[2017-04-27] MEDS: amLODIPine 10 MG TABLET PO SCH (09:08)
[2017-04-27] MEDS: OXcarbazepine 300 MG TABLET PO SCH (09:09)
[2017-04-27] MEDS: CLORAZEPATE 3.75 MG TABLET PO SCH ×3 (09:09→21:32)
[2017-04-27] MEDS: hydrOXYzine HCL 25 MG TABLET PO SCH (09:09)
[2017-04-27] MEDS: TOPIRAMATE 25 MG TABLET PO SCH ×2 (09:09→21:32)
[2017-04-27] MEDS: PANTOPRAZOLE 40 MG TABLET PO SCH (09:10)
[2017-04-27] MEDS: HALOPERIDOL 5 MG TABLET PO SCH ×2 (09:10→21:32)
[2017-04-27] MEDS: DOCUSATE SODIUM 100 MG CAPSULE PO SCH ×2 (09:10→21:32)
[2017-04-27] MEDS: LISINOPRIL 20 MG TABLET PO SCH (09:10)
[2017-04-27] MEDS: buPROPion 100 MG TABLET PO SCH ×2 (09:10→21:32)
--- NOTE | 2017-04-27 10:39 | Hospitalist Progress Note ---
Assessment and Plan (1) Psychogenic polydipsia Status: Acute Assessment and plan: Fluid restrict to 1 L per day. Current Visit: Yes (2) Right renal mass Status: Acute Assessment and plan: Status post nephrectomy by Dr. Hall. Current Visit: Yes (3) Hyponatremia Status: Acute Assessment and plan: Fluid restriction in place. Monitor serum osmolality and sodium levels. Current Visit: Yes (4) Acute blood loss as cause of postoperative anemia Status: Acute Assessment and plan: H&H stable. No need for transition at this time. Current Visit: Yes Hospitalist: Subjective Interval history: Patient seen and examined. Case discussed with nursing staff. Labs reviewed. Patient had couple episodes of confusion overnight. His mental status has improved this morning. His hyponatremia persists. This is thought to be secondary to psychogenic polydipsia with a decreased serum osmolality. Case was discussed with Dr. Hall this morning. The patient will likely be transferred to the floor today. He was also started on Rocephin for rhonchi in his lungs with significant pneumonia on chest x-ray. Exam - Constitutional Vitals: Period Temp Pulse Resp BP Sys/Palma Pulse Ox Last 24 Hr 97.6 F-101.4 F 97-136 12-26 99-161/68-99 93-99 Exam: Constitutional System: No distress. No tremulousness. Head: Normocephalic, atraumatic. Ears, Nose and Throat System: No pain or tenderness. No epistaxis or discharge Eyes System: Pupils equal, round, and reactive. Extraocular muscles intact. Neck: Supple, without adenopathy, No jugular venous distention. No thyromegaly, neck mass, or prior surgery apparent. Respiratory System: Chest mild rhonchi to auscultation. Decreased breath sounds at the bases Cardiovascular System: Heart with regular rate and rhythm. No murmur. GI System: Abdomen soft, nontender. Normo active bowel sounds present. Surgical site clean dry and intact Musculoskeletal System: limbs with no pedal edema. Full distal pulses. Normal capillary refill. Neurological System: No discernable sensory deficit. No aphasia Psychiatric System: Conversation is rational Results - Labs CBC & BMP: 04/27/17 01:41 04/27/17 01:41 Lab Results: I have reviewed the past 24 hour labs - Diagnostic Findings Procedure: Chest x-ray: report reviewed by me, image reviewed by me Quality Measures - VTE Contraindication to Pharmacological VTE Prophylaxis: High Risk of Bleeding
--- NOTE | 2017-04-27 11:21 | Urology Progress Note ---
Assessment and Plan (1) Right renal mass Status: Acute Assessment and plan: Postop day 3 status post right hand-assisted laparoscopic nephrectomy. Incentive spirometer, increase use of this. Out of bed to chair and ambulate in the hallway today. Oral meds for pain. Continue clear liquid diet. Will likely advance his diet to regular. Discussed his pathology with he and his family this morning. He has pT1a clear- cell renal cell carcinoma, Hans grade 2 with negative margins. Current Visit: Yes (2) Hypertension Status: Acute Assessment and plan: Restarted home amlodipine. Labetalol as needed. Hospitalist assisting with management. Current Visit: Yes (3) Acute blood loss as cause of postoperative anemia Status: Acute Assessment and plan: Anemia decrease more than expected. Likely some venous bleeding, but exacerbated by his psychogenic polydipsia and dilutional changes. I had ordered 2 units packed red blood cells, but he had a reaction with the first unit. He actually did not even receive most of the unit as it was within the first 15 minutes and this was stopped. We will try premedication with Benadryl and Tylenol if we need to transfuse. As his hemoglobin has been improving with fluid restriction, I held off and never transfuse a second unit. Repeat a CBC in the morning Current Visit: Yes (4) Bipolar disorder Status: Acute Assessment and plan: Restarted home psychiatric medication. Appreciate hospitalist assistance Current Visit: No Qualifiers: Active/Remission status: remission status unspecified Qualified Code(s): F31.9 - Bipolar disorder, unspecified (5) Diabetes mellitus Status: Acute Assessment and plan: Sliding scale insulin with fingersticks before meals and at bedtime. He was on medication, but this was stopped after he lost 60 pounds. Current Visit: No Qualifiers: Diabetes mellitus type: type 2 (6) Hypokalemia Status: Acute Assessment and plan: He has chronic hypokalemia. Appreciate hospitalist assistance with management Recheck a BMP in the morning. Current Visit: Yes (7) Acute kidney injury Status: Acute Assessment and plan: Creatinine elevated to 1.40, then has followed back to 1.10. Expected rise after radical nephrectomy and blood loss. He is making good urine, hemodynamically his blood pressure is good. Maintain Ernst catheter for strict I's and O's for nail. If doing well, will plan to get his Ernst out later today. Current Visit: Yes (8) Productive cough Status: Acute Assessment and plan: Continue nebulizer treatments due to wheezing and rhonchi. Concern for beginning of a right lower lobe infiltrate. This may be more atelectasis, but with a leukocytosis, productive cough, and worsening rhonchi will start Rocephin 1 g every 24 hours. Aggressive pulmonary care with incentive spirometer. I appreciate the hospitalist assistance in management with this patient. Aggressive pulmonary toileting and strict I's and O's. He is been doing well and stable overnight. Will plan to transfer to the floor today. Current Visit: Yes Urology - PN: Subj Interval history: Some confusion overnight. Feeling better this morning. His fluids have been limited, and his hemoglobin is actually rising. He made over 250 cc of urine in a 2 hour. He reports he had some flatus. Still having the feeling needing to have a bowel movement. Denies chest pain. He has had some productive cough with productive sputum. He had some episodes of sats in the low 90s through the night. He is doing better when he is up in the daytime. He did have some wheezing with rhonchi. His reports he smokes daily at home. Patient reports he is very hungry. Exam - Constitutional Vitals: Period Temp Pulse Resp BP Sys/Palma Pulse Ox Last 24 Hr 97.6 F-101.4 F 97-136 12-26 99-161/68-99 93-99 General appearance: no acute distress - Head Head exam: Present: normocephalic, atraumatic - Eye Eye exam: Present: EOMI. Absent: scleral icterus - ENT ENT exam: Present: normal oropharynx - Neck Neck exam: Present: normal inspection - Respiratory Respiratory exam: Present: decreased breath sounds, rhonchi, wheezes (Bilateral bases) - Cardiovascular Cardiovascular exam: Present: tachycardia (Sinus rhythm). Absent: JVD - GI/Abdominal GI/Abdominal exam: Present: normal bowel sounds, tenderness (Appropriate), soft. Absent: rebound - Genitourinary Genitourinary: scrotum without lesions, cysts, edema or rash, penis with no lesions or discharge, other (Ernst with clear straw-colored urine) - Extremities Exam Extremities exam: Present: normal capillary refill - Back Exam Back exam: Absent: CVA tenderness (L), CVA tenderness (R) - Neurological Exam Neurological exam: Present: alert, oriented X3 - Psychiatric Psychiatric exam: Present: normal affect, normal mood - Skin Skin exam: Present: warm, dry Results - Labs CBC & BMP: 04/27/17 01:41 04/27/17 01:41 Lab Results: I have reviewed the past 24 hour labs - Diagnostic Findings Procedure: Chest x-ray: image reviewed by me
[2017-04-27] MEDS: PROMETHAZINE 25 MG/1 ML VIAL IM PRN (14:37)
[2017-04-27] MEDS: FAMOTIDINE INJ 40 MG in SODIUM CHLORIDE 0.9% 100 ML IV SCH (21:39)
[2017-04-28] MEDS: LEVALBUTEROL 1.25 MG/3 ML NEB RESP TX SCH ×4 (02:00→20:08)
[2017-04-28 06:16] LABS: Basophils % 0.2 % (0.0-0.8); Eosinophils # 0.3 10*3/uL (0.0-0.87); Eosinophils % 2.5 % (0.00-10.9); Hematocrit 24.3 VOL% (42.0-52.0); Immature Granulocytes % 0.7 %; Immature Granulocytes Absolute 0.07 #; Lymphocytes # 1.3 10*3/uL (1.4-4.0); Lymphocytes % 12.7 % (21.2-54.2); Mean Corpuscular Hemoglobin 31 PG (27-34); Mean Corpuscular Volume 84.1 FL (87-102); Mean Platelet Volume 9.3 FL (9.6-12.0); Monocytes % 9.7 % (1.7-12.7); Neutrophils # 7.5 10*3/uL (1.4-7.4); Neutrophils % 74.2 % (38.7-73.9); Platelet Count 259 T/CUMM (130-400); Red Blood Count 2.89 MC/CUMM (3.8-5.5); White Blood Count 10.2 T/CUMM (4-12)
[2017-04-28 06:43] LABS: Osmolality,Calculated 271.1 MOS/KG (273-304); Potassium 3.1 MMOL/L (3.5-5.1)
[2017-04-28] MEDS: INSULIN REGULAR 100 UNIT/ML SUBCUT SCH ×4 (08:03→21:11)
[2017-04-28] MEDS ORDERED: POTASSIUM CHLORIDE 20 MEQ TABLET PO ONE ×2 (08:07→08:16)
--- NOTE | 2017-04-28 08:19 | Urology Progress Note ---
Assessment and Plan - Time spent with patient Time spent with patient: Less than 30 minutes (1) Right renal mass Status: Acute Assessment and plan: Postop day 4 status post right hand-assisted laparoscopic nephrectomy. Incentive spirometer, continue use of this. Continue to ambulate in the hallway today. Oral meds for pain. Advanced his diet to regular. Dulcolax suppository times once now Discussed his pathology with he and his family yesterday. He has pT1a clear- cell renal cell carcinoma, Hans grade 2 with negative margins. Current Visit: Yes (2) Hypertension Status: Acute Assessment and plan: Restarted home amlodipine and lisinopril. Labetalol as needed. Hospitalist assisting with management. Current Visit: Yes (3) Acute blood loss as cause of postoperative anemia Status: Acute Assessment and plan: Anemia decrease more than expected. Likely some venous bleeding, but exacerbated by his psychogenic polydipsia and dilutional changes. I had ordered 2 units packed red blood cells, but he had a reaction with the first unit. He actually did not even receive most of the unit as it was within the first 15 minutes and this was stopped. We will try premedication with Benadryl and Tylenol if we need to transfuse. As his hemoglobin has been improving with fluid restriction, I held off and never transfuse a second unit. Hemoglobin is 9.0 today, this is consistent with 8.9 two days ago. I will repeat a CBC in the morning Plan to keep him 1 more day to document no ongoing bleeding and clinical improvement in respiratory status. Current Visit: Yes (4) Bipolar disorder Status: Acute Assessment and plan: Restarted home psychiatric medication. Appreciate hospitalist assistance Current Visit: No Qualifiers: Active/Remission status: remission status unspecified Qualified Code(s): F31.9 - Bipolar disorder, unspecified (5) Diabetes mellitus Status: Acute Assessment and plan: Stop sliding scale insulin with fingersticks before meals and at bedtime. He has required no insulin with routine fingersticks. He was on medication, but this was stopped after he lost 60 pounds. Current Visit: No Qualifiers: Diabetes mellitus type: type 2 (6) Hypokalemia Status: Acute Assessment and plan: He has chronic hypokalemia. Appreciate hospitalist assistance with management Recheck a BMP in the morning. K-Dur 40 mEq p.o. once now Current Visit: Yes (7) Acute kidney injury Status: Acute Assessment and plan: Creatinine elevated to 1.40, then has followed back to 1.10. Expected rise after radical nephrectomy and blood loss. He is making good urine, hemodynamically his blood pressure is good. Ernst out today.. Current Visit: Yes (8) Productive cough Status: Acute Assessment and plan: Continue nebulizer treatments. Concern for beginning of a right lower lobe infiltrate. Continue Rocephin 1 g every 24 hours. Clinically improving Aggressive pulmonary care with incentive spirometer. I appreciate the hospitalist assistance in management with this patient. Aggressive pulmonary toileting and strict I's and O's. He is been doing well and stable overnight. I will watch him 1 more day as his hemoglobin drifted downward. Current Visit: Yes Urology - PN: Subj Interval history: Feeling better. Still feels some bloated. Reports he is hungry. He has had flatus but no bowel movement. He started a regular diet yesterday afternoon. He did not eat much due to fear of nausea. He ambulated yesterday. He reports no severe abdominal pain. Denies dizziness or chest pain. His coughing is improved. His O2 saturation has improved. Exam - Constitutional Vitals: Period Temp Pulse Resp BP Sys/Palma Pulse Ox Last 24 Hr 97.3 F-98.9 F 96-120 16-26 99-141/69-95 92-99 General appearance: no acute distress - Head Head exam: Present: normocephalic, atraumatic - Eye Eye exam: Absent: scleral icterus - ENT ENT exam: Present: normal oropharynx - Respiratory Respiratory exam: Present: decreased breath sounds. Absent: stridor - Cardiovascular Cardiovascular exam: Present: regular rate and rhythm. Absent: JVD - GI/Abdominal GI/Abdominal exam: Present: tenderness (Mild tenderness in incision sites appropriate), soft, other (Bruising to right lower quadrant, suture lines well approximated with melonie without drainage or erythema). Absent: rebound - Genitourinary Genitourinary: scrotum without lesions, cysts, edema or rash, penis with no lesions or discharge - Extremities Exam Extremities exam: Present: normal capillary refill, full ROM - Back Exam Back exam: Absent: CVA tenderness (L), CVA tenderness (R) - Neurological Exam Neurological exam: Present: alert, oriented X3 - Psychiatric Psychiatric exam: Present: normal affect, normal mood - Skin Skin exam: Present: normal color, warm, dry Results - Labs CBC & BMP: 04/28/17 05:26 04/28/17 05:26 Lab Results: I have reviewed the past 24 hour labs
[2017-04-28] MEDS ORDERED: BISACODYL 10 MG SUPP RECTAL ONE ×2 (08:24→17:30)
[2017-04-28] MEDS: hydrOXYzine HCL 25 MG TABLET PO SCH (09:31)
[2017-04-28] MEDS: LISINOPRIL 20 MG TABLET PO SCH (09:31)
[2017-04-28] MEDS: CLORAZEPATE 3.75 MG TABLET PO SCH ×3 (09:31→21:10)
[2017-04-28] MEDS: DOCUSATE SODIUM 100 MG CAPSULE PO SCH ×2 (09:31→21:11)
[2017-04-28] MEDS: TOPIRAMATE 25 MG TABLET PO SCH ×2 (09:31→21:11)
[2017-04-28] MEDS: buPROPion 100 MG TABLET PO SCH ×2 (09:32→21:11)
[2017-04-28] MEDS: HALOPERIDOL 5 MG TABLET PO SCH ×2 (09:32→21:11)
[2017-04-28] MEDS: PANTOPRAZOLE 40 MG TABLET PO SCH (09:32)
[2017-04-28] MEDS: OXcarbazepine 300 MG TABLET PO SCH (09:32)
[2017-04-28] MEDS: amLODIPine 10 MG TABLET PO SCH (09:32)
--- NOTE | 2017-04-28 11:42 | Hospitalist Progress Note ---
Assessment and Plan (1) Psychogenic polydipsia Status: Acute Assessment and plan: Fluid restrict to 1 L per day. Current Visit: Yes (2) Right renal mass Status: Acute Assessment and plan: Status post nephrectomy by Dr. Hall. Current Visit: Yes (3) Hyponatremia Status: Acute Assessment and plan: Fluid restriction in place. Improving serum osmolality and sodium levels. Current Visit: Yes (4) Acute blood loss as cause of postoperative anemia Status: Acute Assessment and plan: H&H stable. No need for transition at this time. Current Visit: Yes (5) Hypokalemia Status: Acute Assessment and plan: Potassium supplementation ordered Current Visit: Yes Hospitalist: Subjective Interval history: Patient seen and examined. No acute events overnight. Case discussed with nursing staff. Labs reviewed. Case discussed with Dr. Hall this morning. Potassium replaced. Fluid restriction seems to be working. Serum osmolality and serum sodium improved. Patient looks and feels well. He reports a big bowel movement this morning. Anticipate discharge home tomorrow. Exam - Constitutional Vitals: Period Temp Pulse Resp BP Sys/[place] Pulse Ox Last 24 Hr 97.3 F-98.9 F 96-120 16-20 117-141/69-81 92-99 Exam: Constitutional System: No distress. No tremulousness. Head: Normocephalic, atraumatic. Ears, Nose and Throat System: No pain or tenderness. No epistaxis or discharge Eyes System: Pupils equal, round, and reactive. Extraocular muscles intact. Neck: Supple, without adenopathy, No jugular venous distention. Respiratory System: Chest mild rhonchi to auscultation. Decreased breath sounds at the bases Cardiovascular System: Heart with regular rate and rhythm. No murmur. GI System: Abdomen soft, nontender. Normo active bowel sounds present. Surgical site clean dry and intact Musculoskeletal System: limbs with no pedal edema. Full distal pulses. Normal capillary refill. Neurological System: No discernable sensory deficit. No aphasia Psychiatric System: Conversation is rational Results - Labs CBC & BMP: 04/28/17 05:26 04/28/17 05:26 Lab Results: I have reviewed the past 24 hour labs Quality Measures - VTE Contraindication to Pharmacological VTE Prophylaxis: High Risk of Bleeding
[2017-04-29] MEDS: LEVALBUTEROL 1.25 MG/3 ML NEB RESP TX SCH ×2 (01:16→07:03)
[2017-04-29] MEDS ORDERED: MELATONIN 3 MG TABLET PO PRN (03:10)
[2017-04-29] MEDS ORDERED: ACETAMINOPHEN 325 MG TABLET PO PRN (03:10)
[2017-04-29 06:48] LABS: Basophils % 0.3 % (0.0-0.8); Eosinophils # 0.3 10*3/uL (0.0-0.87); Eosinophils % 3.4 % (0.00-10.9); Hematocrit 25.1 VOL% (42.0-52.0); Hemoglobin 9.1 GM/DL (14.0-18.0); Immature Granulocytes % 0.5 %; Immature Granulocytes Absolute 0.04 #; Lymphocytes # 1.5 10*3/uL (1.4-4.0); Lymphocytes % 19.7 % (21.2-54.2); Mean Corpuscular HGB Conc 36.3 GM/DL (32-36); Mean Corpuscular Hemoglobin 31 PG (27-34); Mean Corpuscular Volume 85.1 FL (87-102); Mean Platelet Volume 8.8 FL (9.6-12.0); Monocytes % 12.5 % (1.7-12.7); Neutrophils # 4.8 10*3/uL (1.4-7.4); Neutrophils % 63.6 % (38.7-73.9); Platelet Count 276 T/CUMM (130-400); Red Blood Count 2.95 MC/CUMM (3.8-5.5); Red Cell Distribution Width 12.9 % (9.3-17.3); White Blood Count 7.6 T/CUMM (4-12)
[2017-04-29 07:18] LABS: Calcium 8.4 MG/DL (8.5-10.1); Osmolality,Calculated 269.1 MOS/KG (273-304); Potassium 3.2 MMOL/L (3.5-5.1)
--- NOTE | 2017-04-29 08:19 | Discharge Summary ---
Hospital Course - Hospital Course Hospital Course: Admitted on Monday, April 24, 2017 for right laparoscopic nephrectomy. He had an uncomplicated surgery, and he did well initially. He did have some acute blood loss anemia, and he had a slow fall in his hemoglobin. He was monitored closely, and we are concerned of a venous bleed. This was managed conservatively. He was started with 1 unit of packed red blood cells, but this was stopped within the first 15 minutes as he developed a fever. He had no other symptoms. Upon repeat his hemoglobin stabilized, and we decided not to transfuse further. He was having tachycardia, productive cough, and rhonchi that developed on postop day 2. We started Rocephin, and these signs and symptoms have resolved. He has been on duo nebs. He now is tolerating oral intake. He had a large bowel movement this morning. Reports his abdomen is less distended and feels better. He has good bowel sounds with flatus. His hemoglobin has stabilized around 9. He is breathing better. His tachycardia has improved. He is requesting go home, and I feel that he has been stable for 48 hours. We will discharge him home today with close follow-up. - Time spent with patient Time with patient DS: Less than 30 minutes Time spent discussing smoking cessation with patient: 3 to 10 minutes Diagnosis - Discharge Diagnosis (1) Right renal mass Status: Acute (2) Hypertension Status: Acute (3) Acute blood loss as cause of postoperative anemia Status: Acute (4) Bipolar disorder Status: Acute (5) Diabetes mellitus Status: Acute (6) Hypokalemia Status: Acute (7) Acute kidney injury Status: Acute (8) Productive cough Status: Acute Specialty Discharge - Follow Up or Referrals Follow up with: Adilson Hall MD [Physician] - 05/07/17 8:30 am (Postop follow-up and staple removal. He is to phone the office on Tuesday, May 02, 2017 after his labs are drawn and outside facility.) - Speciality Discharge Instructions Urology Instructions: No heavy lifting, no strenuous activity, nothing more than about 10 pounds for 6 weeks. Increase oral intake of fluids. Monitor blood pressure closely. If lightheaded, short of breath, dizziness, or concern for bowels he should phone. If he is having severe concerns, he should go to the ER. Discharge Plan - Discharge Data Disposition: Disch To Home/Self Care Condition at Discharge: Stable Discharge Diet: diabetic diet Activity: increase activity as tolerated, no lifting (Maximum of 10 pounds), other (No strenuous activity, no riding on ATVs or other outside activities, no contact sports) Hygiene: may shower Weight Bearing at Discharge: full weight bearing Driving: other (Do not drive while using narcotics) Contact your physician if you experience:: fever over 101, Nausea/Vomiting, Shortness of breath, Bleeding Wound / Dressing Care Instructions: Leave wounds open to air - Discharge Medications New Hydrocodone/Acetaminophen [[place] 10-325 Tablet] 1 each PO Q8HR PRN #30 tablet PRN Reason: Pain Moderate To Severe (4-10) Docusate Sodium Cap [Colace Cap] 100 mg PO BID #100 capsule Cefdinir [Omnicef] 300 mg PO BID #14 capsule No Action traZODone [Desyrel] 300 mg PO BEDTIME Topiramate 3 tablet PO BID Lisinopril 20 mg PO DAILY Haloperidol 5 mg PO TID Pantoprazole Tab [Protonix Tab] 1 capsule PO DAILY Clorazepate [Tranxene] 7.5 mg PO TID buPROPion HCl [Bupropion HCl] 100 mg PO BID Tamsulosin [Flomax] 0.4 mg PO DAILY hydrOXYzine HCl [Hydroxyzine HCl] 25 mg PO DAILY Potassium 198 mg PO BID OXcarbazepine [Trileptal] 150 mg PO DAILY amLODIPine [Norvasc] 10 mg PO DAILY - Follow Up or Referral Follow Up: Adilson Hall MD [Physician] - 05/07/17 8:30 am (Postop follow-up and staple removal. He is to phone the office on Tuesday, May 02, 2017 after his labs are drawn and outside facility.) - Forms/Instructions Additional Discharge Instructions: We discussed the risk of bowel obstruction, ileus, repeat bleeding, infection, pulmonary embolus, or need for transfusion. Obtain CBC and BMP on May 02. Prescription provided. Should be faxed to [facility] at [phone]. Exam - Constitutional Vitals: Period Temp Pulse Resp BP Sys/[place] Pulse Ox Last 24 Hr 97.9 F-99.6 F 92-113 14-18 107-150/68-86 93-99 General appearance: no acute distress - Head Head exam: Present: normal inspection, normocephalic - Eye Eye exam: Absent: scleral icterus - ENT ENT exam: Present: normal oropharynx - Neck Neck exam: Present: normal inspection. Absent: lymphadenopathy - Respiratory Respiratory exam: Present: clear to auscultation bilaterally. Absent: stridor, wheezes - Cardiovascular Cardiovascular exam: Present: regular rate and rhythm. Absent: JVD - GI/Abdominal GI/Abdominal exam: Present: normal bowel sounds, tenderness (Appropriately tender and incision site), soft. Absent: rebound - Extremities Exam Extremities exam: Present: normal capillary refill - Back Exam Back exam: Absent: CVA tenderness (L), CVA tenderness (R) - Neurological Exam Neurological exam: Present: alert, oriented X3 - Psychiatric Psychiatric exam: Present: normal affect, normal mood - Skin Skin exam: Present: warm, dry Discharge Results Procedures and tests throughout hospitalization: Pending Orders 04/26/17 06:40 Red Blood Cells Leuko Red Routine Labs on day of discharge: Labs from last 24 hours 04/29/17 04/29/17 04/29/17 07:10 06:20 06:20 WBC 7.6 RBC 2.95 L Hgb 9.1 L Hct 25.1 L MCV 85.1 L MCH 31 MCHC 36.3 H RDW 12.9 Plt Count 276 MPV 8.8 L Neut % (Auto) 63.6 Lymph % (Auto) 19.7 L [place] % (Auto) 12.5 Eos % (Auto) 3.4 Baso % (Auto) 0.3 Neut # (Auto) 4.8 Lymph # (Auto) 1.5 [place] # (Auto) 1.0 H Eos # (Auto) 0.3 Baso # (Auto) 0.0 Immature Gran % 0.5 Nucleated RBC % 0.0 Immature Gran # 0.04 Nucleated RBCs # 0.00 Immature Plt Fraction 0.0 Sodium 135 L Potassium 3.2 L Chloride 103 Carbon Dioxide 22 Anion Gap 13.2 BUN 10 Creatinine 1.30 GFR Calculation 78 BUN/Creatinine Ratio 7.00 Glucose 111 H POC Glucose 133 H Calculated Osmolality 269.1 L Calcium 8.4 L Magnesium 2.0 04/28/17 04/28/17 19:35 15:24 WBC RBC Hgb Hct MCV MCH MCHC RDW Plt Count MPV Neut % (Auto) Lymph % (Auto) [place] % (Auto) Eos % (Auto) Baso % (Auto) Neut # (Auto) Lymph # (Auto) [place] # (Auto) Eos # (Auto) Baso # (Auto) Immature Gran % Nucleated RBC % Immature Gran # Nucleated RBCs # Immature Plt Fraction Sodium Potassium Chloride Carbon Dioxide Anion Gap BUN Creatinine GFR Calculation BUN/Creatinine Ratio Glucose POC Glucose 108 H 128 H Calculated Osmolality Calcium Magnesium DS: Provider Date of admission: 04/24/17 15:55 Primary care physician: Navdeep Colmenares Attending physician on admission: Adilson Hall MD Consults: 04/24/17 17:44 Consult to Pastoral Services [CONS] Routine Comment: Pastoral Screen: Request Tire Repair Mechanic Visit 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
[2017-04-29] MEDS: amLODIPine 10 MG TABLET PO SCH (09:08)
[2017-04-29] MEDS: LISINOPRIL 20 MG TABLET PO SCH (09:08)
[2017-04-29] MEDS: CLORAZEPATE 3.75 MG TABLET PO SCH (09:08)
[2017-04-29] MEDS: DOCUSATE SODIUM 100 MG CAPSULE PO SCH (09:08)
[2017-04-29] MEDS: TOPIRAMATE 25 MG TABLET PO SCH (09:09)
[2017-04-29] MEDS: hydrOXYzine HCL 25 MG TABLET PO SCH (09:09)
[2017-04-29] MEDS: HALOPERIDOL 5 MG TABLET PO SCH (09:09)
[2017-04-29] MEDS: OXcarbazepine 300 MG TABLET PO SCH (09:09)
[2017-04-29] MEDS: PANTOPRAZOLE 40 MG TABLET PO SCH (09:09)
[2017-04-29] MEDS: INSULIN REGULAR 100 UNIT/ML SUBCUT SCH (09:09)
[2017-04-29] MEDS: buPROPion 100 MG TABLET PO SCH (09:09)
[2017-04-29 09:32] VITALS: BP 122/87
--- NOTE | 2017-04-30 16:05 | Physician Query Form ---
CLICK EDIT DOCUMENT TO SELECT QUERY ANSWER --> OK --> SIGN Alina Griffin RN Clinical Form Setter Helper W) [phone] (f) [phone] [email or web address] PROVIDERS: Make your selection(s) from the choices in EACH section by typing an "x" and enter comments in the comment section. Please use your independent medical judgment in providing your response. This request does not imply that any particular answer is desired or expected. CLINICAL INDICATORS: (Providers should not edit this section) The below diagnosis was documented in the record, but is not consistently noted in subsequent documentation. Diagnosis: Pneumonia Based on documentation of "He was also started on Rocephin for rhonchi in his lungs with significant pneumonia on chest x-ray". Please clarify the following: ( ) The above diagnosis was monitored, evaluated, and/or treated and is a confirmed diagnosis ( X) The above diagnosis was ruled out ( ) Other, please specify: ( ) Clinically unable to determine COMMENTS: PLEASE ALSO DOCUMENT RESPONSE IN PROGRESS NOTES AND/OR DISCHARGE SUMMARY Use of terms such as suspected, likely, or probable (associated with a specific diagnosis that is being evaluated, monitored, or treated as if it exists) are acceptable and can be restated in the discharge summary if not ruled out. MTDD
== END 2017-04-29 10:07 | disposition home or self-care (01) | DRG 657 ==
LOC: N.OR 05:32 → N.SDSINP 05:36 → N.5E 15:55 → N.CC 04-26 12:57 → N.5E 04-27 11:46
PROVIDERS: ADMIT Surgery; ATTEND Surgery

== ENCOUNTER 2017-05-01 09:53 | Inpatient (IN) ==
[2017-05-01] MEDS ORDERED: SODIUM CHLORIDE 0.9% 1,000 ML IV STA (10:18)
[2017-05-01] MEDS ORDERED: PROMETHAZINE 25 MG/1 ML VIAL IM STA (10:20)
--- NOTE | 2017-05-01 10:30 | Emergency Department Note ---
Whitney Ruiz Gwan, am scribing for, and in the presence of, Adilson Escobar MD 10:15 . Luz Ruiz James D, MD, personally performed the services described in this documentation, ascribed by Janet Olson in my presence, and it is both accurate and complete . Arrival - Arrival Chief Complaint: Abdominal / Flank Pain Stated Complaint: SENT BY DR. ERICKSON RIGHT SIDE PAIN ED Nursing Triage Note: RENAL CELL CARCINOMA, R NEPHRECTOMY WEEK AGO TODAY, PAIN ON RIGHT SIDE, ABD PAIN WITH +NAUSEA Mode of Arrival: Wheelchair Limitations: No Limitations Source: Patient, Old Records Reviewed, RN Notes Reviewed - History of Present Illness HPI Narrative: Patient is a 51 y/o male who presents to the ED with a c/o right side abd pain, decreased appetite/fluid intake and nausea. Patient stated that he had renal cell carcinoma which caused right nephrectomy performed [address] Erickson. He confirmed that he was discharged 04/29/2017 and that his sxs began before discharge. Patient denies any vomiting, trouble breathing, hematuria or diarrhea. Patient did not appear to be in any distress. No other problems/ complaints reported in ED. Onset (ago): week(s) Consistency: constant Severity: moderate Allergies/Adverse Reactions: Allergies Allergy/AdvReac Type Severity Reaction Status Date / Time ondansetron AdvReac HIVES Verified 05/01/17 10:06 [From Zofran (as hydrochloride)] Home Medications: Home Medications Medication Instructions Recorded Confirmed Type Haloperidol 5 mg PO TID 01/31/15 04/24/17 History Lisinopril 20 mg PO DAILY 01/31/15 04/24/17 History Pantoprazole Tab [Protonix Tab] 1 capsule PO DAILY 01/31/15 04/24/17 History Topiramate 3 tablet PO BID 01/31/15 04/24/17 History traZODone [Desyrel] 300 mg PO BEDTIME 01/31/15 04/24/17 History Clorazepate [Tranxene] 7.5 mg PO TID 10/19/16 04/24/17 History OXcarbazepine [Trileptal] 150 mg PO DAILY 10/19/16 04/24/17 History amLODIPine [Norvasc] 10 mg PO DAILY 10/26/16 04/24/17 History Tamsulosin [Flomax] 0.4 mg PO DAILY 03/29/17 04/24/17 History buPROPion HCl [Bupropion HCl] 100 mg PO BID 03/29/17 04/24/17 History hydrOXYzine HCl [Hydroxyzine HCl] 25 mg PO DAILY 03/29/17 04/24/17 History Potassium 198 mg PO BID 04/24/17 04/24/17 History Cefdinir [Omnicef] 300 mg PO BID #14 capsule 04/29/17 Rx Docusate Sodium Cap [Colace Cap] 100 mg PO BID #100 capsule 04/29/17 Rx Hydrocodone/Acetaminophen [[place] 1 each PO Q8HR PRN #30 tablet 04/29/17 Rx 10-325 Tablet] Review of System - Review of System 12 point system: reviewed and no additional remarkable complaints except as stated - Review of System Constitutional: Absent: chills, fever Gastrointestinal: Present: as per HPI, abdominal pain (right side), nausea. Absent: vomiting, diarrhea Musculoskeletal: Absent: arm pain, arthralgia, back pain, leg pain, neck pain Medical,Surgical,& Family Hx - Medical History Cardio: History of: Hypertension Psychological: History of: Bipolar Disorder, Depression, Previous Suicide Attempt (1990, 2003; denies any problems now) Neurology: History of: Neurological Problems (Tourette Syndrome) No history of: Seizures Endocrine: History of: Diabetes Mellitus (NIDDM) (PT NOT ON MEDICATIONS OR INSULINS. RESOLVED WITH WEIGHT LOSS.) Respiratory: No history of: Respiratory Problems (FLU VAC- NO;PNEU VAC- YES.) Renal: History of: Renal Problems (BLOOD IN URINE.) Genitourinary: History of: Kidney Stones Gastrointestinal: History of: Diverticulitis/ Diverticulosis (PRE CANCER CELLS.) Musculoskeletal: History of: Back/Neck Problems (LOWER BACK PAIN. DR NUÑEZ BACK INJECTIONS 4-5 YEARS AGO.), Musculoskeletal Problems (right hip and sciatic nerve pain) Other: History of: MRSA (LT LEG?) - Surgical History Thoracic Surgeries: Surgical HX of;: Nephrectomy (right) Patient denies;: Organ Transplant Neurologic Surgeries: Patient denies: Neurologic Surgery HEENT Surgeries: Surgical HX of: Tonsilectomy & Adenoidectomy Abdominal Surgeries: Surgical HX of: Abdominal Surgery (colectomy- 10 inches of colon removed by Dr. Jason Bell at [facility]), Appendectomy (1996 at [facility]), Cholecystectomy (2001 Dr. Jason Bell at [facility]), Colonoscopy, Gastric Bypass Surgery Orthopedic Surgeries: Surgical HX of;: Orthopedic Surgery (RT KNEE SCOPE. BEN CARPAL TUNNEL) - Family History Family History: Reports;: Family Diabetes - Social History Smoking Status: Never smoker Exam Physical Examination: GENERAL: This is a male in no apparent distress. VITAL SIGNS: HEENT: Head is normocephalic and atraumatic. Pupils are equally round and reactive to light. Extraocular movement are intact. Oropharynx is benign with dry mucous membranes. NECK: Neck is soft and supple without tenderness. There are no masses. There is no lymphadenopathy. LUNGS: Lungs are clear to auscultation bilaterally. Chest rises symmetrically. There is no chest wall tenderness. CV: Heart is regular rate and rhythm without murmurs, rubs, or gallops. ABDOMEN: Abdomen is soft, tender to palpation in the right flank with some subcutaneous crepitus medially. There is a large area of ecchymosis present in the right flank and right lumbar area extending down onto the anterior portion of the right thigh and inguinal area. There are no abnormal masses palpated. There is no organomegaly. Bowel sounds are present and active. SKIN: Skin is warm and dry. No rash. EXTREMITIES: Patient has full range of motion without tenderness. There is no pedal edema. NEUROLOGIC: Awake, alert, and oriented x4. Cranial nerves II through XII are grossly intact. There are no motorsensory deficits. PSYCHIATRIC: Normal affect. Normal mood. Vital Signs: Vital Signs Temperature 99.2 F 05/01/17 10:15 Pulse Rate 112 H 05/01/17 10:15 Respiratory Rate 22 05/01/17 10:15 Blood Pressure 114/84 05/01/17 10:15 O2 Sat by Pulse Oximetry 97 05/01/17 10:01 Course - Consultations Consultation #1: Discussed with Dr. Erickson. Patient will be admitted to his service. Initial orders written for him. He will assume patient's care upon arrival to the [facility]. Time: 11:19 Results - Labs CBC & BMP: 05/01/17 10:34 Lab Results: I have reviewed the patients labs - Diagnostic Findings Procedure: Abdominal x-ray: image reviewed by me (Dilated loops of small bowel. Subcutaneous air is present in the abdominal wall. There is no free air.), Chest x-ray: image reviewed by me (No infiltrates, no pleural effusions. Subcutaneous air is present in the right side of the chest wall.) Disposition Clinical Impression: Status post right nephrectomy, Fever, Nausea, Right flank ecchymosis, Moderate dehydration, Ileus Case discussed with: patient, patient's family Disposition: Still a Patient Condition: Stable Time of Disposition: 11:19
[2017-05-01] MEDS ORDERED: PROMETHAZINE 25 MG/1 ML VIAL ONE (10:45)
[2017-05-01 10:59] LABS: Basophils % 0.2 % (0.0-0.8); Eosinophils # 0.2 10*3/uL (0.0-0.87); Eosinophils % 2.1 % (0.00-10.9); Hematocrit 26.8 VOL% (42.0-52.0); Hemoglobin 9.9 GM/DL (14.0-18.0); Immature Granulocytes % 1.6 %; Immature Granulocytes Absolute 0.17 #; Lymphocytes # 1.4 10*3/uL (1.4-4.0); Lymphocytes % 13.2 % (21.2-54.2); Mean Corpuscular HGB Conc 36.9 GM/DL (32-36); Mean Corpuscular Hemoglobin 31 PG (27-34); Mean Corpuscular Volume 84.3 FL (87-102); Monocytes # 0.8 10*3/uL (0.11-0.8); Neutrophils # 7.9 10*3/uL (1.4-7.4); Neutrophils % 74.9 % (38.7-73.9); Platelet Count 336 T/CUMM (130-400); Red Blood Count 3.18 MC/CUMM (3.8-5.5); Red Cell Distribution Width 12.8 % (9.3-17.3); White Blood Count 10.5 T/CUMM (4-12)
[2017-05-01 11:07] LABS: Apearance,Urine CLEAR (Clear); Bilirubin,Urine Negative (Negative); Blood, Urine Negative (Negative); Glucose,Urine (UA) Negative (Negative); Ketones,Urine Negative (Negative); Nitrite,Urine Negative (Negative); Protein,Urine Negative; RBC,Urine <1 /HPF (0-4); Urine Color Straw (Yellow); Urine Specific Gravity 1.003 (1.001-1.035); Urine Urobilinogen < 2.0 EU/DL (0.2-1.0); WBC,Urine <1 /HPF (0-6)
[2017-05-01 11:10] LABS: PT Patient Result 10.4 SECS; Partial Thromboplastin Time 28.4 SECS (0-40)
--- NOTE | 2017-05-01 11:21 | XRay Report ---
XR chest 2V Indication: Fever Comparison: 27 April 2017 Findings: The heart and mediastinum are stable in size and configuration. There is air in the right chest wall, similar findings were present on previous study likely postsurgical. The pulmonary vascularity is normal in caliber. No lung infiltrates, effusions, pneumothorax or other abnormality is demonstrated. Impression: Air in the right chest wall. No other evidence of acute findings. PROCEDURE INTERPRETED AT [facility] DEPARTMENT OF RADIOLOGY Final Report Signed by: Dr. Luis Valdes
--- NOTE | 2017-05-01 11:29 | XRay Report ---
XR abdomen 2V Indication: Fever Comparison: 31 January 2015 Findings: No free fluid or free air seen. The bowel gas pattern appears within normal limits. No abnormal calcifications are present. Multiple clips are present from recent surgery. There is seen in the right lateral abdominal wall. Prominent loops of small bowel are present. No other abnormality is identified. Impression: Air in the abdominal wall with recent surgery. Prominent loops of small bowel, could indicate ileus. No definite intra-abdominal free air seen. PROCEDURE INTERPRETED AT [facility] DEPARTMENT OF RADIOLOGY Final Report Signed by: Dr. Luis Valdes
[2017-05-01 11:30] LABS: Albumin 3.2 G/DL (3.4-5.0); Calcium 8.5 MG/DL (8.5-10.1); Total Protein 6.2 G/DL (6.4-8.3)
[2017-05-01 11:31] LABS: Osmolality,Calculated 264.4 MOS/KG (273-304); Potassium 3.2 MMOL/L (3.5-5.1)
--- NOTE | 2017-05-01 12:42 | Urology History & Physical ---
Assessment and Plan - Time spent with patient Time spent with patient: Less than 30 minutes (1) Ileus Status: Acute Assessment and plan: Patient has clinical ileus postoperative. This is likely related with previous retroperitoneal bleeding. He is having flatus and had a bowel movement yesterday. Reports flatus again today. He is tolerating liquids, but solid foods are making him nauseous. Will admit with clear liquids and IV hydration. Current Visit: Yes (2) Moderate dehydration Status: Acute Assessment and plan: BUN is 8 creatinine 1.0 on labs today. We will start normal saline with 20 mg of potassium due to chronic hypokalemia. Current Visit: Yes (3) Nausea Status: Acute Assessment and plan: Phenergan 25 mg IM or p.o. every 6 hours as needed Current Visit: Yes (4) Acute blood loss as cause of postoperative anemia Status: Acute Assessment and plan: H&H is stable, this is consistent with his discharge labs. No evidence of acute bleeding. 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 He clinically is doing much better on antibiotics. Xopenex neb treatments every 6 hours as needed Current Visit: No 12 point system: reviewed and no additional remarkable complaints except as stated - Constitutional Constitutional: Present: anorexia, chills, fatigue. Absent: fever(s), headache( s) - EENT Eyes: Absent: diplopia Nose, mouth and throat: Absent: dysphagia, epistaxis, headache(s) - Cardiovascular Cardiovascular: Absent: chest pain at rest, dyspnea, edema, palpitations - Respiratory Respiratory: Present: cough. Absent: wheezing - Gastrointestinal Gastrointestinal: Present: bloating, dyspepsia, early satiety, nausea. Absent: cramping, diarrhea, dysphagia, vomiting - Genitourinary Genitourinary: Absent: difficulty urinating, dysuria, flank pain - Hematologic/Lymphatic Hematologic/Lymphatic: Present: other (Right flank hematoma that is consistent with old bleed) History of Present Illness Chief complaint: nausea History of present illness: Mr. Liriano is a 51 year old male postop day 8 from right laparoscopic nephrectomy who returns to the ER today. He reports he is having significant nausea and abdominal distention. He still having flatus. He had a bowel movement yesterday and the day before. He reports he has been drinking fluids. He notes that the smell of food makes him nauseous. He denies fevers but had some chills today. He called the office with reported chills and abdominal distention with severe nausea. His hospital course was complicated by a postoperative bleed that was likely venous in nature. He has an H&H that is stable from discharge. His reports he had a full meal on Sunday and then ate regular diet again yesterday. He had been drinking Gatorade at home. Home Medications Medication Instructions Recorded Confirmed Type Haloperidol 5 mg PO TID 01/31/15 05/01/17 History Lisinopril 20 mg PO DAILY 01/31/15 05/01/17 History Pantoprazole Tab [Protonix Tab] 40 mg PO DAILY 01/31/15 05/01/17 History Topiramate 75 mg PO BID 01/31/15 05/01/17 History traZODone [Desyrel] 300 mg PO BEDTIME 01/31/15 05/01/17 History Clorazepate [Tranxene] 7.5 mg PO TID 10/19/16 05/01/17 History OXcarbazepine [Trileptal] 150 mg PO DAILY 10/19/16 05/01/17 History amLODIPine [Norvasc] 10 mg PO DAILY 10/26/16 05/01/17 History Tamsulosin [Flomax] 0.4 mg PO BEDTIME 03/29/17 05/01/17 History buPROPion HCl [Bupropion HCl] 100 mg PO BID 03/29/17 05/01/17 History Potassium 198 mg PO BID 04/24/17 05/01/17 History Docusate Sodium Cap [Colace Cap] 100 mg PO BID #100 capsule 04/29/17 05/01/17 Rx Hydrocodone/Acetaminophen [Ke[place] 1 each PO Q8HR PRN #30 tablet 04/29/17 Rx 10-325 Tablet] Cefdinir [Omnicef] 300 mg PO [id number] 05/01/17 05/01/17 History Allergies Allergy/AdvReac Type Severity Reaction Status Date / Time ondansetron AdvReac HIVES Verified 05/01/17 10:06 [From Zofran (as hydrochloride)] Medical,Surgical,& Family Hx - Medical History Cardio: History of: Hypertension Psychological: History of: Bipolar Disorder, Depression, Previous Suicide Attempt (1990, 2003; denies any problems now) Neurology: History of: Neurological Problems (Tourette Syndrome) No history of: Seizures Endocrine: History of: Diabetes Mellitus (NIDDM) (PT NOT ON MEDICATIONS OR INSULINS. RESOLVED WITH WEIGHT LOSS.) Respiratory: No history of: Respiratory Problems (FLU VAC- NO;PNEU VAC- YES.) Renal: History of: Renal Problems (BLOOD IN URINE.) Genitourinary: History of: Kidney Stones Gastrointestinal: History of: Diverticulitis/ Diverticulosis (PRE CANCER CELLS.) Musculoskeletal: History of: Back/Neck Problems (LOWER BACK PAIN. DR NUÑEZ BACK INJECTIONS 4-5 YEARS AGO.), Musculoskeletal Problems (right hip and sciatic nerve pain) Other: History of: MRSA (LT LEG?) - Surgical History Thoracic Surgeries: Surgical HX of;: Nephrectomy (right) Patient denies;: Organ Transplant Neurologic Surgeries: Patient denies: Neurologic Surgery HEENT Surgeries: Surgical HX of: Tonsilectomy & Adenoidectomy Abdominal Surgeries: Surgical HX of: Abdominal Surgery (colectomy- 10 inches of colon removed by Dr. Jason Bell at [place]), Appendectomy (1996 at [facility]), Cholecystectomy (2001 Dr. Jason Bell at [place]), Colonoscopy, Gastric Bypass Surgery Orthopedic Surgeries: Surgical HX of;: Orthopedic Surgery (RT KNEE SCOPE. BEN CARPAL TUNNEL) - Family History Family History: Reports;: Family Diabetes - Social History Smoking Status: Never smoker Exam - Constitutional Vitals: Period Temp Pulse Resp BP Sys/Palma Pulse Ox Last 24 Hr 99.2 F-99.2 F 112-112 22-22 114-114/84-84 97 General appearance: no acute distress - Head Head exam: Present: normocephalic, atraumatic - Eye Eye exam: Present: EOMI - ENT ENT exam: Present: normal oropharynx - Neck Neck exam: Present: normal inspection, lymphadenopathy - Respiratory Respiratory exam: Present: rhonchi. Absent: accessory muscle use, stridor, wheezes - Cardiovascular Cardiovascular exam: Present: regular rate and rhythm. Absent: JVD - GI/Abdominal GI/Abdominal exam: Present: tenderness (Appropriate right side), soft, other ( Bruising the right lower quadrant and flank). Absent: rebound - Genitourinary Genitourinary: scrotum without lesions, cysts, edema or rash, penis with no lesions or discharge - Extremities Exam Extremities exam: Present: normal capillary refill. Absent: calf tenderness, edema - Back Exam Back exam: Absent: CVA tenderness (L), CVA tenderness (R) - Neurological Exam Neurological exam: Present: alert, oriented X3 - Psychiatric Psychiatric exam: Present: normal affect, normal mood Results - Labs CBC & BMP: 05/01/17 10:34 05/01/17 10:34 Lab Results: I have reviewed the past 24 hour labs - Diagnostic Findings Procedure: Chest x-ray: image reviewed by me, KUB x-ray: image reviewed by me Quality Measures - VTE Deep Vein Thrombosis/Pulmonary Embolism Present on Admission: No Contraindication to Pharmacological VTE Prophylaxis: High Risk of Bleeding
[2017-05-01] MEDS ORDERED: LEVALBUTEROL 0.63 MG/3 ML NEB RESP TX PRN (16:06)
[2017-05-01] MEDS ORDERED: ACETAMINOPHEN 325 MG TABLET PO PRN (16:06)
[2017-05-01] MEDS ORDERED: diphenhydrAMINE 50 MG/1 ML VIAL IV PRN (16:06)
[2017-05-01] MEDS ORDERED: ZALEPLON 5 MG CAPSULE PO PRN (16:06)
[2017-05-01] MEDS: HALOPERIDOL 5 MG TABLET PO SCH ×2 (16:15→20:48)
[2017-05-01] MEDS: CLORAZEPATE 3.75 MG TABLET PO SCH ×2 (16:15→20:48)
[2017-05-01] MEDS: PROMETHAZINE 25 MG/1 ML VIAL IM PRN ×2 (16:42→22:41)
[2017-05-01] MEDS: SODIUM CHLOR 0.9% KCL 20 MEQ 20 MEQ/1,000 ML BAG IV SCH (16:43)
[2017-05-01] MEDS: buPROPion 100 MG TABLET PO SCH (20:49)
[2017-05-01] MEDS: TOPIRAMATE 25 MG TABLET PO SCH (20:49)
[2017-05-01] MEDS: DOCUSATE SODIUM 100 MG CAPSULE PO SCH (21:13)
[2017-05-02] MEDS: PROMETHAZINE 25 MG/1 ML VIAL IM PRN (02:13)
[2017-05-02] MEDS: SODIUM CHLOR 0.9% KCL 20 MEQ 20 MEQ/1,000 ML BAG IV SCH (02:37)
[2017-05-02] MEDS ORDERED: PROMETHAZINE 25 MG TABLET PO PRN (06:48)
--- NOTE | 2017-05-02 06:52 | Urology Progress Note ---
Assessment and Plan - Time spent with patient Time spent with patient: Less than 30 minutes (1) Ileus Status: Acute Assessment and plan: Patient has clinical resolution of ileus. Advance his diet and stop IV hydration. Follow-up abdominal series for this morning. Phenergan p.o. as needed nausea. Continue his home Protonix which he takes for dyspepsia. Current Visit: Yes (2) Moderate dehydration Status: Acute Assessment and plan: BUN is 8 creatinine 1.0 on labs yesterday. His urine specific gravity was 1.003. He has been voiding well with clear urine. Will stop any IV fluids. Current Visit: Yes (3) Nausea Status: Acute Assessment and plan: Phenergan 12.5 mg p.o. every 6 hours as needed Current Visit: Yes (4) Acute blood loss as cause of postoperative anemia Status: Acute Assessment and plan: H&H is stable, this is consistent with his discharge labs. No evidence of acute bleeding. Follow-up labs this morning Current Visit: No (5) Bipolar disorder Status: Acute Assessment and plan: Continue his home medications Current Visit: No Qualifiers: Active/Remission status: remission status unspecified Qualified Code(s): F31.9 - Bipolar disorder, unspecified (6) Diabetes mellitus Status: Acute Assessment and plan: Diet control, no sliding scale insulins as his prior fingersticks of all been normal. 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 He clinically is doing much better on antibiotics. Will discharge home on Omnicef which was prescribed previously. Xopenex neb treatments every 6 hours as needed Clinically he is improved and at baseline. If he does well with a regular diet and Phenergan p.o. we will discharge later this afternoon. Current Visit: No Urology - PN: Subj Interval history: Patient reports he is feeling well. He had a good night. No complaints overnight. He had some nausea but no vomiting. He is tolerating oral intake well. He is having flatus and had a bowel movement this morning. Notes he had a large bowel movement yesterday. Reports this helped with his bloated feeling. No fevers or chills. His coughing is improved. Is nonproductive now. Patient reports he was smoking marijuana on a daily basis prior to surgery. He has not done this prior to surgery. We have discussed that he was doing this to help with some nausea and anxiety preop. Exam - Constitutional Vitals: Period Temp Pulse Resp BP Sys/Palma Pulse Ox Last 24 Hr 98.1 F-99.4 F 90-112 16-22 114-137/74-84 92-97 General appearance: no acute distress - Head Head exam: Present: normal inspection, normocephalic, atraumatic - ENT ENT exam: Present: normal oropharynx - Neck Neck exam: Present: normal inspection - Respiratory Respiratory exam: Absent: accessory muscle use, stridor, wheezes - Cardiovascular Cardiovascular exam: Present: regular rate and rhythm. Absent: JVD - GI/Abdominal GI/Abdominal exam: Present: soft, other (Right lower quadrant bruising to right flank). Absent: tenderness, rebound - Genitourinary Genitourinary: scrotum without lesions, cysts, edema or rash, penis with no lesions or discharge - Extremities Exam Extremities exam: Present: normal capillary refill, full ROM, calf tenderness - Back Exam Back exam: Absent: CVA tenderness (L), CVA tenderness (R) - Neurological Exam Neurological exam: Present: alert, oriented X3 - Psychiatric Psychiatric exam: Present: normal affect, normal mood - Skin Skin exam: Present: normal color, warm, dry Results - Labs CBC & BMP: 05/01/17 10:34 05/01/17 10:34 Lab Results: I have reviewed the past 24 hour labs - Diagnostic Findings Procedure: Abdominal x-ray: image reviewed by me Specialty Discharge - Follow Up or Referrals Follow up with: Adilson Hall MD [Physician] - 5 Days (Sunday, May 07 at 830 am)
[2017-05-02 07:39] LABS: Basophils % 0.2 % (0.0-0.8); Eosinophils # 0.3 10*3/uL (0.0-0.87); Eosinophils % 3.5 % (0.00-10.9); Hematocrit 26.3 VOL% (42.0-52.0); Hemoglobin 9.4 GM/DL (14.0-18.0); Immature Granulocytes % 1.9 %; Immature Granulocytes Absolute 0.18 #; Lymphocytes # 1.8 10*3/uL (1.4-4.0); Lymphocytes % 18.8 % (21.2-54.2); Mean Corpuscular HGB Conc 35.7 GM/DL (32-36); Mean Corpuscular Hemoglobin 30 PG (27-34); Mean Corpuscular Volume 84.8 FL (87-102); Mean Platelet Volume 9.1 FL (9.6-12.0); Monocytes # 0.9 10*3/uL (0.11-0.8); Monocytes % 9.3 % (1.7-12.7); Neutrophils # 6.4 10*3/uL (1.4-7.4); Neutrophils % 66.3 % (38.7-73.9); Platelet Count 364 T/CUMM (130-400); Red Cell Distribution Width 13.1 % (9.3-17.3); White Blood Count 9.7 T/CUMM (4-12)
[2017-05-02 08:11] LABS: Calcium 8.3 MG/DL (8.5-10.1); Magnesium 1.7 MG/DL (1.8-2.4); Osmolality,Calculated 271.8 MOS/KG (273-304); Potassium 3.5 MMOL/L (3.5-5.1)
--- NOTE | 2017-05-02 08:33 | XRay Report ---
XR abdomen 2V Indication: Ileus Comparison: Abdominal x-ray dated May 01, 2017 Technique: Frontal views of the abdomen in the supine and upright position. Findings: Stable to minimally improved small bowel dilatation suggesting ileus or partial small bowel obstruction. No free intraperitoneal air. Visualized osseous and surrounding soft tissue structures appear grossly unchanged. Surgical clips project over the right upper quadrant of the abdomen. Superficial skin melonie project over the right abdomen. IMPRESSION: As above. PROCEDURE INTERPRETED AT [facility] DEPARTMENT OF RADIOLOGY Final Report Signed by: Dr James Bolaños
[2017-05-02] MEDS ORDERED: amLODIPine 10 MG TABLET PO SCH (09:00)
[2017-05-02] MEDS ORDERED: OXcarbazepine 300 MG TABLET PO SCH (09:00)
[2017-05-02] MEDS ORDERED: PANTOPRAZOLE 40 MG TABLET PO SCH (09:00)
[2017-05-02] MEDS: TOPIRAMATE 25 MG TABLET PO SCH (09:01)
[2017-05-02] MEDS: buPROPion 100 MG TABLET PO SCH (09:01)
[2017-05-02] MEDS: DOCUSATE SODIUM 100 MG CAPSULE PO SCH (09:01)
[2017-05-02] MEDS: CLORAZEPATE 3.75 MG TABLET PO SCH (09:01)
[2017-05-02] MEDS: HALOPERIDOL 5 MG TABLET PO SCH (09:02)
[2017-05-02 11:47] VITALS: BP 133/85
--- NOTE | 2017-05-02 12:28 | Discharge Summary ---
Hospital Course - Hospital Course Hospital Course: Admitted overnight per the ER physician. He did well. With gentle hydration, his nausea resolved. He had a large bowel movement yesterday and then again this morning. He reports now his abdomen is softer. He tolerated his diet well. He had a full lunch with no problems. No nausea, no vomiting, no abdominal pain. He feels back to his normal self. He is drinking fluids well. No other complaints or problems today. His laboratory values are reviewed and his hemoglobin is stable. His creatinine is 1.0. He wants to be discharged , and I agree that he is stable for discharge. - Time spent with patient Time with patient DS: Less than 30 minutes Diagnosis - Discharge Diagnosis (1) Ileus Status: Resolved (2) Moderate dehydration Status: Resolved (3) Nausea Status: Resolved (4) Acute blood loss as cause of postoperative anemia Status: Acute (5) Bipolar disorder Status: Acute (6) Diabetes mellitus Status: Acute (7) Hypertension Status: Acute (8) Primary clear cell carcinoma of right kidney Status: Acute (9) Productive cough Status: Acute Specialty Discharge - Follow Up or Referrals Follow up with: Adilson Hall MD [Physician] - 5 Days (Sunday, May 07 at 830 am) Discharge Plan - Discharge Data Disposition: Disch To Home/Self Care Condition at Discharge: Stable Discharge Diet: advance to your usual diet, diabetic diet Activity: no lifting, no prolonged standing Hygiene: may shower Weight Bearing at Discharge: full weight bearing Driving: other (Do not drive while using narcotics) Contact your physician if you experience:: fever over 101, Nausea/Vomiting, Shortness of breath, Bleeding - Discharge Medications No Action traZODone [Desyrel] 300 mg PO BEDTIME Topiramate 75 mg PO BID Lisinopril 20 mg PO DAILY Haloperidol 5 mg PO TID Pantoprazole Tab [Protonix Tab] 40 mg PO DAILY Clorazepate [Tranxene] 7.5 mg PO TID buPROPion HCl [Bupropion HCl] 100 mg PO BID Tamsulosin [Flomax] 0.4 mg PO BEDTIME Potassium 198 mg PO BID Hydrocodone/Acetaminophen [Farnam 10-325 Tablet] 1 each PO Q8HR PRN #30 tablet PRN Reason: Pain Moderate To Severe (4-10) Docusate Sodium Cap [Colace Cap] 100 mg PO BID #100 capsule OXcarbazepine [Trileptal] 150 mg PO DAILY amLODIPine [Norvasc] 10 mg PO DAILY Cefdinir [Omnicef] 300 mg PO [id number] - Follow Up or Referral Follow Up: Adilson Hall MD [Physician] - 5 Days (Sunday, May 07 at 830 am) - Forms/Instructions Additional Discharge Instructions: Phenergan 25 mg 1/2-1 tablet every 6 hours as needed #30, no refills prescribed. Increase his oral intake of fluids. Continue home antibiotics. Exam - Constitutional Vitals: Period Temp Pulse Resp BP Sys/Palma Pulse Ox Last 24 Hr 98.0 F-99.4 F 90-106 16-20 121-137/74-94 92-97 General appearance: no acute distress - Head Head exam: Present: normal inspection, normocephalic - Eye Eye exam: Present: EOMI - ENT ENT exam: Present: normal oropharynx - Neck Neck exam: Present: normal inspection - Respiratory Respiratory exam: Present: clear to auscultation bilaterally. Absent: rhonchi, wheezes - Cardiovascular Cardiovascular exam: Present: regular rate and rhythm. Absent: JVD - GI/Abdominal GI/Abdominal exam: Present: soft, other (Well approximated with melonie at suture line, right lower quadrant and flank bruising improving). Absent: tenderness, rebound - Extremities Exam Extremities exam: Present: normal capillary refill - Back Exam Back exam: Absent: CVA tenderness (L), CVA tenderness (R) - Psychiatric Psychiatric exam: Present: normal affect, normal mood - Skin Skin exam: Present: warm, dry Discharge Results Procedures and tests throughout hospitalization: Pending Orders 05/01/17 10:49 Blood Culture Stat Labs on day of discharge: Labs from last 24 hours 05/02/17 05/02/17 06:17 06:17 WBC 9.7 RBC 3.10 L Hgb 9.4 L Hct 26.3 L MCV 84.8 L MCH 30 MCHC 35.7 RDW 13.1 Plt Count 364 MPV 9.1 L Neut % (Auto) 66.3 Lymph % (Auto) 18.8 L [place] % (Auto) 9.3 Eos % (Auto) 3.5 Baso % (Auto) 0.2 Neut # (Auto) 6.4 Lymph # (Auto) 1.8 [place] # (Auto) 0.9 H Eos # (Auto) 0.3 Baso # (Auto) 0.0 Immature Gran % 1.9 Nucleated RBC % 0.0 Immature Gran # 0.18 Nucleated RBCs # 0.00 Immature Plt Fraction 0.0 Sodium 137 Potassium 3.5 Chloride 104 Carbon Dioxide 23 Anion Gap 13.5 BUN 8 Creatinine 1.00 GFR Calculation 107 BUN/Creatinine Ratio 8.00 Glucose 112 H Calculated Osmolality 271.8 L Calcium 8.3 L Magnesium 1.7 L Preliminary micro results at discharge 05/01/17 10:49 Blood Culture - Preliminary Blood No growth at 1 day 05/01/17 10:40 Blood Culture - Preliminary Blood No growth at 1 day - Imaging and Cardiology Cardiology Procedure: image reviewed by Procedure: Abdominal x-ray: image reviewed by DS: Provider Date of admission: 05/01/17 11:19 Primary care physician: Navdeep Colmenares Attending physician on admission: Adilson Hall MD Discharging clinician: Adilson Hall MD Expected date of discharge: 05/02/17
== END 2017-05-02 13:10 | disposition home or self-care (01) | DRG 390 ==
LOC: N.ED 09:53 → N.EDINP 11:19 → N.5E 16:09
PROVIDERS: ADMIT Surgery; ATTEND Surgery

== ENCOUNTER 2017-11-09 06:11 | Inpatient (IN) ==
[~2017-11-09 06:11] MED LIST: DIAZEPAM 5 MG TABLET PO ONE; FAMOTIDINE 20 MG TABLET PO ONE
[2017-11-09] MEDS ORDERED: VANCOMYCIN 1,000 MG VIAL ONE (06:12)
[2017-11-09] MEDS ORDERED: VANCOMYCIN INJ 1,000 MG in SODIUM CHLORIDE 0.9% 250 ML IV ONE (06:30)
[2017-11-09 06:50] LABS: Basophils % 0.4 % (0.0-0.8); Eosinophils # 0.1 10*3/uL (0.0-0.87); Eosinophils % 1.4 % (0.00-10.9); Hematocrit 37.4 VOL% (42.0-52.0); Hemoglobin 13.2 GM/DL (14.0-18.0); Immature Granulocytes % 0.9 %; Immature Granulocytes Absolute 0.09 #; Lymphocytes # 1.9 10*3/uL (1.4-4.0); Lymphocytes % 19.5 % (21.2-54.2); Mean Corpuscular HGB Conc 35.3 GM/DL (32-36); Mean Corpuscular Hemoglobin 31 PG (27-34); Mean Corpuscular Volume 88.4 FL (87-102); Mean Platelet Volume 7.9 FL (9.6-12.0); Monocytes # 0.8 10*3/uL (0.11-0.8); Monocytes % 8.2 % (1.7-12.7); Neutrophils # 6.7 10*3/uL (1.4-7.4); Neutrophils % 69.6 % (38.7-73.9); Platelet Count 408 T/CUMM (130-400); Red Blood Count 4.23 MC/CUMM (3.8-5.5); Red Cell Distribution Width 13.3 % (9.3-17.3); White Blood Count 9.6 T/CUMM (4-12)
[2017-11-09] MEDS ORDERED: FAMOTIDINE 20 MG TABLET ONE (07:13)
[2017-11-09] MEDS ORDERED: DIAZEPAM 5 MG TABLET ONE (07:13)
[2017-11-09 07:23] LABS: Calcium 8.9 MG/DL (8.5-10.1); Osmolality,Calculated 256.9 MOS/KG (273-304); Potassium 4.3 MMOL/L (3.5-5.1)
[2017-11-09] MEDS ORDERED: LACTATED RINGERS 1,000 ML IV SCH (07:30)
[2017-11-09] MEDS ORDERED: SCOPOLAMINE 1.5 MG PATCH TRANSDERM ONE (07:49)
[2017-11-09] MEDS ORDERED: BUPIVACAINE 0.25% 50 ML VIAL ONE (07:56)
[2017-11-09] MEDS ORDERED: LIDOCAINE 1%/EPI INJ 20 ML VIAL ONE (07:56)
[2017-11-09] MEDS ORDERED: PROMETHAZINE 25 MG/1 ML VIAL IM PRN (09:47)
[2017-11-09] MEDS ORDERED: PROPOFOL 200 MG/20 ML VIAL IV ONE (09:51)
[2017-11-09] MEDS ORDERED: SEVOFLURANE 1 UNIT/15 MINUTE INH ONE (09:51)
[2017-11-09] MEDS ORDERED: DEXAMETHASONE 10 MG/1 ML VIAL ONE (09:52)
[2017-11-09] MEDS ORDERED: PHENYLEPHRINE 10 MG/1 ML VIAL IV ONE (09:52)
[2017-11-09] MEDS ORDERED: MIDAZOLAM 2 MG/2 ML VIAL ONE (09:52)
[2017-11-09] MEDS ORDERED: ROCURONIUM 100 MG/10 ML VIAL IV ONE (09:52)
[2017-11-09] MEDS ORDERED: fentaNYL 100 MCG/2 ML VIAL ONE (09:52)
[2017-11-09] MEDS ORDERED: GLYCOPYRROLATE 0.4 MG/2 ML VIAL ONE (09:52)
[2017-11-09] MEDS ORDERED: ePHEDrine 50 MG/ML AMP ONE (09:52)
[2017-11-09] MEDS ORDERED: SUCCINYLCHOLINE 200 MG/10 ML VIAL ONE (09:52)
[2017-11-09] MEDS ORDERED: NEOSTIGMINE 10 MG/10 ML VIAL ONE (09:53)
[2017-11-09] MEDS ORDERED: SODIUM CHLORIDE 0.9% 1,000 ML IV ONE (09:53)
[2017-11-09] MEDS: MORPHINE 4 MG/1 ML VIAL IV PRN ×3 (12:16→20:18)
[2017-11-09] MEDS ORDERED: amLODIPine 10 MG TABLET PO SCH (13:00)
[2017-11-09] MEDS ORDERED: LISINOPRIL 10 MG TABLET PO SCH (13:00)
[2017-11-09] MEDS: buPROPion 100 MG TABLET PO SCH ×2 (13:39→20:22)
[2017-11-09] MEDS: DOCUSATE SODIUM 100 MG CAPSULE PO SCH ×2 (13:39→20:21)
[2017-11-09] MEDS: OXcarbazepine 300 MG TABLET PO SCH (13:40)
[2017-11-09] MEDS: TOPIRAMATE 25 MG TABLET PO SCH ×2 (13:40→20:21)
[2017-11-09] MEDS: POTASSIUM CHLORIDE 20 MEQ TABLET PO SCH ×2 (13:40→20:22)
[2017-11-09] MEDS: CLORAZEPATE 7.5 MG TABLET PO SCH ×2 (14:13→20:22)
[2017-11-09] MEDS: HALOPERIDOL 5 MG TABLET PO SCH ×2 (14:13→20:21)
[2017-11-09] MEDS: VANCOMYCIN INJ 1,250 MG in SODIUM CHLORIDE 0.9% 250 ML IV SCH (20:15)
[2017-11-09] MEDS: TAMSULOSIN 0.4 MG CAPSULE PO SCH (20:22)
[2017-11-10] MEDS: MORPHINE 4 MG/1 ML VIAL IV PRN ×4 (02:26→20:47)
[2017-11-10 04:12] LABS: Basophils % 0.3 % (0.0-0.8); Eosinophils % 0.3 % (0.00-10.9); Hematocrit 32.5 VOL% (42.0-52.0); Hemoglobin 11.4 GM/DL (14.0-18.0); Immature Granulocytes % 0.7 %; Lymphocytes # 2.2 10*3/uL (1.4-4.0); Lymphocytes % 16.3 % (21.2-54.2); Mean Corpuscular HGB Conc 35.1 GM/DL (32-36); Mean Corpuscular Hemoglobin 32 PG (27-34); Mean Corpuscular Volume 89.8 FL (87-102); Mean Platelet Volume 8.3 FL (9.6-12.0); Monocytes % 7.3 % (1.7-12.7); Neutrophils # 10.3 10*3/uL (1.4-7.4); Neutrophils % 75.1 % (38.7-73.9); Platelet Count 386 T/CUMM (130-400); Red Blood Count 3.62 MC/CUMM (3.8-5.5); Red Cell Distribution Width 13.4 % (9.3-17.3); White Blood Count 13.8 T/CUMM (4-12)
[2017-11-10 04:29] LABS: Calcium 8.6 MG/DL (8.5-10.1); Osmolality,Calculated 265.5 MOS/KG (273-304); Potassium 3.8 MMOL/L (3.5-5.1)
[2017-11-10] MEDS: HALOPERIDOL 5 MG TABLET PO SCH ×3 (08:24→20:50)
[2017-11-10] MEDS: TOPIRAMATE 25 MG TABLET PO SCH ×2 (08:24→20:50)
[2017-11-10] MEDS: DOCUSATE SODIUM 100 MG CAPSULE PO SCH ×2 (08:24→20:50)
[2017-11-10] MEDS: buPROPion 100 MG TABLET PO SCH ×2 (08:24→20:50)
[2017-11-10] MEDS: CLORAZEPATE 7.5 MG TABLET PO SCH ×3 (08:24→20:51)
[2017-11-10] MEDS: OXcarbazepine 300 MG TABLET PO SCH (08:24)
[2017-11-10] MEDS: POTASSIUM CHLORIDE 20 MEQ TABLET PO SCH ×2 (08:24→20:49)
[2017-11-10] MEDS: VANCOMYCIN INJ 1,250 MG in SODIUM CHLORIDE 0.9% 250 ML IV SCH ×2 (08:25→21:13)
[2017-11-10] MEDS: TAMSULOSIN 0.4 MG CAPSULE PO SCH (20:50)
[2017-11-11] MEDS: MORPHINE 4 MG/1 ML VIAL IV PRN ×5 (03:17→18:52)
[2017-11-11 03:40] LABS: Basophils # 0.1 10*3/uL (0.0-0.2); Basophils % 0.9 % (0.0-0.8); Eosinophils # 0.1 10*3/uL (0.0-0.87); Eosinophils % 1.5 % (0.00-10.9); Hematocrit 32.5 VOL% (42.0-52.0); Hemoglobin 11.8 GM/DL (14.0-18.0); Immature Granulocytes % 1.1 %; Lymphocytes % 34.2 % (21.2-54.2); Mean Corpuscular HGB Conc 36.3 GM/DL (32-36); Mean Corpuscular Hemoglobin 32 PG (27-34); Mean Corpuscular Volume 87.4 FL (87-102); Mean Platelet Volume 8.4 FL (9.6-12.0); Monocytes # 0.8 10*3/uL (0.11-0.8); Monocytes % 9.2 % (1.7-12.7); Neutrophils # 4.7 10*3/uL (1.4-7.4); Neutrophils % 53.1 % (38.7-73.9); Platelet Count 359 T/CUMM (130-400); Red Blood Count 3.72 MC/CUMM (3.8-5.5); Red Cell Distribution Width 13.4 % (9.3-17.3); White Blood Count 8.8 T/CUMM (4-12)
[2017-11-11 04:07] LABS: Calcium 8.3 MG/DL (8.5-10.1); Osmolality,Calculated 263.5 MOS/KG (273-304)
[2017-11-11] MEDS: VANCOMYCIN INJ 1,250 MG in SODIUM CHLORIDE 0.9% 250 ML IV SCH ×2 (07:22→20:17)
[2017-11-11] MEDS: DOCUSATE SODIUM 100 MG CAPSULE PO SCH ×2 (08:21→20:16)
[2017-11-11] MEDS: POTASSIUM CHLORIDE 20 MEQ TABLET PO SCH ×2 (08:21→20:17)
[2017-11-11] MEDS: TOPIRAMATE 25 MG TABLET PO SCH ×2 (08:21→20:17)
[2017-11-11] MEDS: buPROPion 100 MG TABLET PO SCH ×2 (08:21→20:17)
[2017-11-11] MEDS: CLORAZEPATE 7.5 MG TABLET PO SCH ×3 (08:21→20:16)
[2017-11-11] MEDS: OXcarbazepine 300 MG TABLET PO SCH (08:21)
[2017-11-11] MEDS: HALOPERIDOL 5 MG TABLET PO SCH ×3 (08:21→20:16)
[2017-11-11] MEDS: TAMSULOSIN 0.4 MG CAPSULE PO SCH (20:16)
[2017-11-12] MEDS: MORPHINE 4 MG/1 ML VIAL IV PRN (02:47)
[2017-11-12] MEDS: CLORAZEPATE 7.5 MG TABLET PO SCH ×2 (08:29→15:35)
[2017-11-12] MEDS: buPROPion 100 MG TABLET PO SCH (08:30)
[2017-11-12] MEDS: HALOPERIDOL 5 MG TABLET PO SCH ×2 (08:30→15:35)
[2017-11-12] MEDS: VANCOMYCIN INJ 1,250 MG in SODIUM CHLORIDE 0.9% 250 ML IV SCH (08:30)
[2017-11-12] MEDS: POTASSIUM CHLORIDE 20 MEQ TABLET PO SCH (08:30)
[2017-11-12] MEDS: TOPIRAMATE 25 MG TABLET PO SCH (08:35)
[2017-11-12] MEDS: OXcarbazepine 300 MG TABLET PO SCH (08:35)
[2017-11-12] MEDS: DOCUSATE SODIUM 100 MG CAPSULE PO SCH (08:35)
[2017-11-12 16:30] VITALS: BP 130/80
== END 2017-11-12 17:45 | disposition home or self-care (01) | DRG 909 ==
LOC: N.OR 06:11 → N.SDSINP 06:20 → N.3E 09:47
PROVIDERS: ADMIT Surgery; ATTEND Surgery

== ENCOUNTER 2018-05-14 15:05 | Inpatient (IN) ==
[2018-05-14] MEDS: MORPHINE 4 MG/1 ML VIAL IV PRN ×2 (16:37→20:52)
[2018-05-14] MEDS: ACETAMINOPHEN 325 MG TABLET PO PRN (16:39)
[2018-05-14 17:08] LABS: Basophils % 0.1 % (0.0-0.8); Hematocrit 30.7 VOL% (42.0-52.0); Hemoglobin 11.3 GM/DL (14.0-18.0); Immature Granulocytes % 0.6 %; Immature Granulocytes Absolute 0.13 #; Lymphocytes # 0.6 10*3/uL (1.4-4.0); Lymphocytes % 3.1 % (21.2-54.2); Mean Corpuscular HGB Conc 36.8 GM/DL (32-36); Mean Corpuscular Hemoglobin 31 PG (27-34); Mean Corpuscular Volume 84.1 FL (87-102); Mean Platelet Volume 8.6 FL (9.6-12.0); Monocytes % 9.8 % (1.7-12.7); Neutrophils # 17.4 10*3/uL (1.4-7.4); Neutrophils % 86.4 % (38.7-73.9); Platelet Count 265 T/CUMM (130-400); Red Blood Count 3.65 MC/CUMM (3.8-5.5); Red Cell Distribution Width 12.2 % (9.3-17.3); White Blood Count 20.1 T/CUMM (4-12)
[2018-05-14] MEDS ORDERED: PROMETHAZINE 25 MG/1 ML VIAL IM PRN (17:28)
[2018-05-14 17:29] LABS: Albumin 3.3 G/DL (3.4-5.0); Bilirubin,Total 0.6 MG/DL (0.2-1.0); Calcium 8.4 MG/DL (8.5-10.1); Osmolality,Calculated 242.9 MOS/KG (273-304); Potassium 3.6 MMOL/L (3.5-5.1); Total Protein 6.5 G/DL (6.4-8.3)
[2018-05-14] MEDS: PROMETHAZINE 25 MG TABLET PO PRN (17:37)
[2018-05-14] MEDS: VANCOMYCIN INJ 1,250 MG in SODIUM CHLORIDE 0.9% 250 ML IV SCH (17:40)
[2018-05-14] MEDS: SODIUM CHLORIDE 0.9% 1,000 ML IV SCH (17:43)
[2018-05-14] MEDS ORDERED: INFLUENZA VIRUS VACCINE 0.5 ML SYRINGE IM ONE (17:54)
[2018-05-14 18:12] LABS: Lymphocytes 2 % (20-55); Platelet Estimate Normal; Segmented Neutrophils 91 % (50-85); Total Cells Counted 100
[2018-05-14] MEDS ORDERED: diphenhydrAMINE 50 MG/1 ML VIAL IV ONE (21:20)
[2018-05-14 22:41] LABS: Apearance,Urine CLEAR (Clear); Bilirubin,Urine Negative (Negative); Blood, Urine Small mg/dL (Negative); Glucose,Urine (UA) Negative (Negative); Ketones,Urine Negative (Negative); Nitrite,Urine Negative (Negative); Protein,Urine Negative; Urine Color Straw (Yellow); Urine Specific Gravity 1.002 (1.001-1.035); Urine Urobilinogen < 2.0 EU/DL (0.2-1.0); WBC,Urine 1 /HPF (0-6)
[2018-05-15] MEDS: HYDROmorphone 2 MG/1 ML VIAL IV PRN ×6 (01:24→21:57)
[2018-05-15] MEDS: SODIUM CHLORIDE 0.9% 1,000 ML IV SCH ×2 (03:57→20:19)
[2018-05-15] MEDS: VANCOMYCIN INJ 1,250 MG in SODIUM CHLORIDE 0.9% 250 ML IV SCH ×2 (04:21→17:31)
[2018-05-15] MEDS: PROMETHAZINE 25 MG TABLET PO PRN ×3 (05:05→17:27)
[2018-05-15 05:31] LABS: Calcium 8.4 MG/DL (8.5-10.1); Osmolality,Calculated 257.8 MOS/KG (273-304); Potassium 3.1 MMOL/L (3.5-5.1)
[2018-05-15] MEDS ORDERED: BUPIVACAINE MPF 0.25% /EPI 30 ML VIAL ONE (09:53)
[2018-05-15] MEDS ORDERED: LIDOCAINE 1%/EPI INJ 20 ML VIAL ONE (10:28)
[2018-05-15] MEDS ORDERED: SEVOFLURANE 1 UNIT/15 MINUTE INH ONE (11:49)
[2018-05-15] MEDS ORDERED: PROPOFOL 200 MG/20 ML VIAL IV ONE (11:49)
[2018-05-15] MEDS ORDERED: GLYCOPYRROLATE 0.4 MG/2 ML VIAL ONE (11:50)
[2018-05-15] MEDS ORDERED: MIDAZOLAM 2 MG/2 ML VIAL ONE (11:50)
[2018-05-15] MEDS ORDERED: fentaNYL 100 MCG/2 ML VIAL ONE (11:50)
[2018-05-15] MEDS ORDERED: ROCURONIUM 100 MG/10 ML VIAL IV ONE (11:51)
[2018-05-15] MEDS ORDERED: PHENYLEPHRINE 1 MG/10 ML SYRINGE IV ONE (11:51)
[2018-05-15] MEDS ORDERED: ePHEDrine 50 MG/ML AMP ONE (11:51)
[2018-05-15] MEDS ORDERED: LACTATED RINGERS 1,000 ML IV ONE (11:51)
[2018-05-15] MEDS ORDERED: NEOSTIGMINE 10 MG/10 ML VIAL ONE (11:51)
[2018-05-15] MEDS ORDERED: OXcarbazepine 300 MG TABLET PO SCH (14:15)
[2018-05-15] MEDS ORDERED: HALOPERIDOL 5 MG TABLET PO SCH (15:00)
[2018-05-15] MEDS: CLORAZEPATE 7.5 MG TABLET PO SCH ×2 (15:29→20:11)
[2018-05-15] MEDS: TOPIRAMATE 25 MG TABLET PO SCH ×2 (15:29→20:11)
[2018-05-15] MEDS: TAMSULOSIN 0.4 MG CAPSULE PO SCH (20:09)
[2018-05-15] MEDS: buPROPion SR 100 MG TABLET PO SCH (20:10)
[2018-05-15] MEDS: HALOPERIDOL 5 MG TABLET PO SCH (20:10)
[2018-05-15] MEDS: ACETAMINOPHEN 325 MG TABLET PO PRN (20:15)
[2018-05-16] MEDS: HYDROmorphone 2 MG/1 ML VIAL IV PRN (02:13)
[2018-05-16] MEDS: SODIUM CHLORIDE 0.9% 1,000 ML IV SCH (04:19)
[2018-05-16] MEDS: VANCOMYCIN INJ 1,250 MG in SODIUM CHLORIDE 0.9% 250 ML IV SCH ×2 (05:20→17:13)
[2018-05-16] MEDS: LISINOPRIL 40 MG PO SCH (08:51)
[2018-05-16] MEDS: PANTOPRAZOLE 40 MG TABLET PO SCH (08:52)
[2018-05-16] MEDS: amLODIPine 10 MG TABLET PO SCH (08:52)
[2018-05-16] MEDS: OXcarbazepine 300 MG TABLET PO SCH (08:53)
[2018-05-16] MEDS: buPROPion SR 100 MG TABLET PO SCH ×2 (08:53→20:49)
[2018-05-16] MEDS: HALOPERIDOL 5 MG TABLET PO SCH ×3 (08:53→20:49)
[2018-05-16] MEDS: CLORAZEPATE 7.5 MG TABLET PO SCH ×3 (09:06→20:49)
[2018-05-16] MEDS: ENOXAPARIN 40 MG/0.4 ML SYRINGE SUBCUT SCH (09:06)
[2018-05-16] MEDS: TOPIRAMATE 25 MG TABLET PO SCH ×2 (09:06→20:48)
[2018-05-16] MEDS: TAMSULOSIN 0.4 MG CAPSULE PO SCH (20:49)
[2018-05-17] MEDS: VANCOMYCIN INJ 1,250 MG in SODIUM CHLORIDE 0.9% 250 ML IV SCH ×2 (00:36→09:45)
[2018-05-17 05:03] LABS: Basophils # 0.1 10*3/uL (0.0-0.2); Basophils % 0.9 % (0.0-0.8); Eosinophils # 0.2 10*3/uL (0.0-0.87); Eosinophils % 2.4 % (0.00-10.9); Hematocrit 31.1 VOL% (42.0-52.0); Hemoglobin 10.7 GM/DL (14.0-18.0); Immature Granulocytes % 0.8 %; Immature Granulocytes Absolute 0.06 #; Lymphocytes # 1.6 10*3/uL (1.4-4.0); Lymphocytes % 20.4 % (21.2-54.2); Mean Corpuscular HGB Conc 34.4 GM/DL (32-36); Mean Corpuscular Hemoglobin 31 PG (27-34); Mean Corpuscular Volume 89.4 FL (87-102); Mean Platelet Volume 8.4 FL (9.6-12.0); Monocytes # 0.7 10*3/uL (0.11-0.8); Monocytes % 9.1 % (1.7-12.7); Neutrophils # 5.2 10*3/uL (1.4-7.4); Neutrophils % 66.4 % (38.7-73.9); Platelet Count 320 T/CUMM (130-400); Red Blood Count 3.48 MC/CUMM (3.8-5.5); White Blood Count 7.8 T/CUMM (4-12)
[2018-05-17 05:39] LABS: Calcium 8.5 MG/DL (8.5-10.1); Osmolality,Calculated 268.1 MOS/KG (273-304); Potassium 3.4 MMOL/L (3.5-5.1)
[2018-05-17] MEDS: buPROPion SR 100 MG TABLET PO SCH (09:39)
[2018-05-17] MEDS: TOPIRAMATE 25 MG TABLET PO SCH (09:39)
[2018-05-17] MEDS: HALOPERIDOL 5 MG TABLET PO SCH (09:39)
[2018-05-17] MEDS: PANTOPRAZOLE 40 MG TABLET PO SCH (09:40)
[2018-05-17] MEDS: CLORAZEPATE 7.5 MG TABLET PO SCH (09:40)
[2018-05-17] MEDS: OXcarbazepine 300 MG TABLET PO SCH (09:40)
[2018-05-17] MEDS: ENOXAPARIN 40 MG/0.4 ML SYRINGE SUBCUT SCH (09:43)
[2018-05-17] MEDS: amLODIPine 10 MG TABLET PO SCH (09:44)
[2018-05-17] MEDS: LISINOPRIL 40 MG PO SCH (09:45)
[2018-05-17 11:03] VITALS: BP 125/72
[2018-05-18] MEDS ORDERED: LISINOPRIL 40 MG PO SCH (09:00)
== END 2018-05-17 13:10 | disposition home health service (06) | DRG 909 ==
LOC: N.ADMINP 15:14 → N.3E 15:24 → N.2E 05-17 13:20 → N.3E 05-17 14:34
PROVIDERS: ADMIT Surgery; ATTEND Surgery